=== PATIENT | male | born 1940 | race Caucasian/White ===

== ENCOUNTER 2016-03-29 07:34 | Inpatient (IN) | payer OTHER ==
--- NOTE | 2016-03-29 07:48 | EDPHY ---
H & P Time Seen by Provider: 03/29/16 07:48 HPI/ROS: CHIEF COMPLAINT: Abdominal pain HISTORY OF PRESENT ILLNESS: Started yesterday with generalized abdominal pain worsening today. Associated with nausea but no vomiting and no bowel movement in the last 24 hours. Worse with oral intake and generalized. Does not radiate. No history of fall or trauma. REVIEW OF SYSTEMS: Eye: no change in vision ENT: no sore throat Cardiac: no chest pain or syncope Pulmonary: no cough or SOB Abdomen: HPI Musculoskeletal: no back pain Skin: no rash Neuro: no headache Constitutional: no fever : no urinary symptoms A comprehensive 10 point review of systems is otherwise negative aside from elements mentioned in the history of present illness. PAST MEDICAL HISTORY: Includes cochlear implant, hernia repair x2, tonsillectomy, depression and hypertension and psoriasis. Social history: Former smoker, denies alcohol greater than 1 time per week. General Appearance: Alert and conversant, cooperative. Eyes: No scleral icterus. ENT, Mouth: Normal mucous membranes. Respiratory: Normal respiratory effort, breath sounds equal, lungs are clear to auscultation. Cardiovascular: Regular rate and rhythm. Gastrointestinal: Right lower quadrant tenderness without rebound or guarding, normal male . Neurological: Alert and oriented x3. Normally conversant. Face symmetric, normal movement and sensation in all extremities. Skin: Warm and dry, no rashes. Musculoskeletal: No peripheral edema and no joint swelling. Psychiatric: Not agitated. Emergency Department course/MDM: Fentanyl 50 mcg IV, Phenergan 12.5 mg IV normal saline 2 L, i-STAT and CT of creatinine normal. 914: Lipase reviewed, admission for pancreatitis. 947: Results discussed with the patient, admission to hospitalist service for pancreatitis. Gallbladder ultrasound ordered. Smoking Status: Former smoker Constitutional: Initial Vital Signs Temperature (C) 36.5 C 03/29/16 07:42 Heart Rate 118 H 03/29/16 07:42 Respiratory Rate 18 03/29/16 07:42 Blood Pressure 146/95 H 03/29/16 07:42 O2 Sat (%) 93 03/29/16 07:42 O2 Delivery Mode Room Air Allergies/Adverse Reactions: STRAWBERRIES Allergy (Intermediate, Uncoded 05/06/11 14:44) Hives Home Medications: Medication Instructions Recorded Cholesterol Med 12/03/10 ESCITALOPRAM OXALATE [Lexapro] 0 mg PO 12/03/10 ZOLPIDEM TARTRATE [Ambien Cr] 0 mg PO 12/03/10 Atorvastatin Calcium [Lipitor] 10 mg PO 12/17/10 Hydrocortisone 03/29/16 Lisinopril 03/29/16 Omeprazole 03/29/16 Tamsulosin HCl 03/29/16 buPROPion 03/29/16 traZODONE 50MG (*) 03/29/16 Medical Decision Making - Diagnostics EKG Interpretation: 12-lead EKG interpreted by me; official reading is in trace master. My interpretation is sinus tachycardia with first-degree AV block and LVH at rate 106. Imaging: At 9:[address] reported to me by Dr. Acevedo is pancreatitis, personally reviewed by myself. Differential Diagnosis: Differential considered including but not limited to pancreatitis, bowel obstruction, appendicitis, diverticulitis, intestinal perforation Consult/Admit Bed Type: [place] [id number] - Data Points Laboratory Results: Laboratory Results 03/29/16 08:00 03/29/16 08:00 03/29/16 03/29/16 08:00 07:55 WBC 19.76 H 10^3/uL (3.80-9.50) RBC 5.68 10^6/uL (4.40-6.38) Hgb 17.8 H g/dL (13.7-17.5) POC Hgb 18.0 H gm/dL (14.5-17.3) Hct 50.4 % (40.0-51.0) POC Hct 53 H % (42.8-50.6) MCV 88.7 fL (81.5-99.8) MCH 31.3 pg (27.9-34.1) MCHC 35.3 g/dL (32.4-36.7) RDW 13.8 % (11.5-15.2) Plt Count 226 10^3/uL (150-400) MPV 9.5 fL (8.7-11.7) Neut % (Auto) 90.0 H % (39.3-74.2) Lymph % (Auto) 3.7 L % (15.0-45.0) [place] % (Auto) 5.6 % (4.5-13.0) Eos % (Auto) 0.1 L % (0.6-7.6) Baso % (Auto) 0.2 L % (0.3-1.7) Nucleat RBC Rel Count 0.0 % (0.0-0.2) Absolute Neuts (auto) 17.82 H 10^3/uL (1.70-6.50) Absolute Lymphs (auto) 0.73 L 10^3/uL (1.00-3.00) Absolute Monos (auto) 1.10 H 10^3/uL (0.30-0.80) Absolute Eos (auto) 0.01 L 10^3/uL (0.03-0.40) Absolute Basos (auto) 0.03 10^3/uL (0.02-0.10) Absolute Nucleated RBC 0.00 10^3/uL (0-0.01) Immature Gran % 0.4 % (0.0-1.1) Immature Gran # 0.07 10^3/uL (0.00-0.10) POC Sodium 142 mEq/L (134-144) Sodium 145 H mEq/L (134-144) POC Potassium 3.7 mEq/L (3.3-5.0) Potassium 4.0 mEq/L (3.5-5.2) POC Chloride 105 mEq/L (96-108) Chloride 107 mEq/L (97-110) Carbon Dioxide 23 mEq/l (22-31) Anion Gap 15 mEq/L (8-16) POC BUN 21 mg/dL (7-23) BUN 20 mg/dL (7-23) Creatinine 0.9 mg/dL (0.7-1.3) POC Creatinine 0.9 mg/dL (0.8-1.5) Estimated GFR > 60 Glucose 147 H mg/dL (70-100) POC Glucose 151 H mg/dL (70-100) Calcium 10.7 H mg/dL (8.5-10.4) Phosphorus 2.6 mg/dL (2.5-4.5) Total Bilirubin 1.5 H mg/dL (0.1-1.4) Conjugated Bilirubin 0.4 mg/dL (0.0-0.5) Unconjugated Bilirubin 1.1 mg/dL (0.0-1.1) AST 43 IU/L (17-59) ALT 71 IU/L (21-72) Alkaline Phosphatase 139 H IU/L (38-126) Total Protein 8.0 g/dL (6.3-8.2) Albumin 4.7 g/dL (3.5-5.0) Triglycerides 91 mg/dL (40-150) Lipase 3875.0 H IU/L (23-300) Medications Given: Discontinued Medications Fentanyl (Sublimaze) 50 mcg IVP EDNOW ONE Stop: 03/29/16 07:59 Last Admin: 03/29/16 08:09 Dose: 50 mcg Sodium Chloride (Ns) 1,000 mls @ 0 mls/hr IV ONCE ONE PRN Reason: Wide Open Stop: 03/29/16 07:59 Last Admin: 03/29/16 08:10 Dose: 1,000 mls Sodium Chloride (Ns) 1,000 mls @ 0 mls/hr IV ONCE ONE PRN Reason: Wide Open Stop: 03/29/16 07:59 Last Admin: 03/29/16 08:10 Dose: 1,000 mls Promethazine HCl (Phenergan) 12.5 mg IVP EDNOW ONE Stop: 03/29/16 07:59 Last Admin: 03/29/16 08:11 Dose: 12.5 mg Point of Care Test Results: 03/29/16 07:55 POC Sodium 142 POC Potassium 3.7 POC Chloride 105 POC BUN 21 POC Creatinine 0.9 POC Glucose 151 H Departure - Departure Disposition: [facility] Inpatient Acute Clinical Impression: Pancreatitis, acute Condition: Fair
[2016-03-29] MEDS ORDERED: NS 1,000 ML IV ONE ×2 (07:58)
[2016-03-29] MEDS ORDERED: fentaNYL 100 MCG/2 ML INJ IVP ONE (07:58)
[2016-03-29] MEDS ORDERED: PROMETHAZINE HCL 25 MG/ML INJ IVP ONE (07:58)
[2016-03-29 08:09] LABS: % IMMATURE GRANULYOCYTES 0.4 % (0.0-1.1); ABSOLUTE IMMATURE GRANULOCYTES 0.07 10^3/uL (0.00-0.10); ADD DIFF? NO; ADD MORPH? NO; ADD SCAN? NO; ATYPICAL LYMPHOCYTE FLAG 0 (0-99); FRAGMENT RBC FLAG 0 (0-99); HEMATOCRIT 50.4 % (40.0-51.0); HEMOGLOBIN 17.8 g/dL (13.7-17.5); LEFT SHIFT FLG 0 (0-99); LIPEMIA HEMOLYSIS FLAG 90 (0-99); MEAN CELL HEMOGLOBIN 31.3 pg (27.9-34.1); MEAN CELL HEMOGLOBIN CONCENTR. 35.3 g/dL (32.4-36.7); MEAN CELL VOLUME 88.7 fL (81.5-99.8); MEAN PLATELET VOLUME 9.5 fL (8.7-11.7); PLATELET CLUMPS FLAG 50 (0-99); PLATELET COUNT 226 10^3/uL (150-400); RED BLOOD CELL COUNT 5.68 10^6/uL (4.40-6.38); RED CELL DISTRIBUTION WIDTH 13.8 % (11.5-15.2)
--- NOTE | 2016-03-29 08:27 | CPEKG ---
Heart Rate: 106 RR Interval: 566 P-R Interval: 228 QRSD Interval: 76 QT Interval: 312 QTC Interval: 415 P [place]: 46 QRS [place]: -11 T Wave [place]: 172 EKG Severity - ABNORMAL ECG - EKG Impression: SINUS TACHYCARDIA EKG Impression: FIRST DEGREE AV BLOCK EKG Impression: LVH WITH SECONDARY REPOLARIZATION ABNORMALITY Electronically Signed By: John Mueller 29-Mar-2016 08:53:10
[2016-03-29 08:37] LABS: ALANINE AMINOTRANSFERASE 71 IU/L (21-72); ALBUMIN 4.7 g/dL (3.5-5.0); ALKALINE PHOSPHATASE 139 IU/L (38-126); ANION GAP 15 mEq/L (8-16); ASPARTATE AMINOTRANSFERASE 43 IU/L (17-59); BILIRUBIN,TOTAL 1.5 mg/dL (0.1-1.4); BILIRUBIN-CONJUGATED 0.4 mg/dL (0.0-0.5); BILIRUBIN-UNCONJUGATED 1.1 mg/dL (0.0-1.1); CALCIUM 10.7 mg/dL (8.5-10.4); CARBON DIOXIDE 23 mEq/l (22-31); CHLORIDE 107 mEq/L (97-110); CREATININE 0.9 mg/dL (0.7-1.3); GLOMERULAR FILTRATION RATE > 60; GLUCOSE 147 mg/dL (70-100); SODIUM 145 mEq/L (134-144)
[2016-03-29] MEDS ORDERED: IOPAMIDOL (ISOVUE-300) 100 ML BTL IV ONE (08:37)
--- NOTE | 2016-03-29 09:48 | CT ---
CT Scan of the Abdomen and Pelvis (With Contrast) Clinical Indications: Abdominal pain and nausea Technique: Dilute contrast was given orally prior to scanning. 100 mL of Isovue-300 were given intr avenously by machine power injection. Multidetector helical CT imaging was performed from the diaphr agm to the symphysis pubis. Dose reduction techniques were utilized. Comparison: March 26, 2006 Findings: Abdomen: There is new peripancreatic fat edema, in the left upper quadrant, in the retroperitoneum a nd adjacent to the pancreatic head and duodenal sweep. A small focal low density in the distal common duct on image 86, series 5 could possibly represent evidence of small volume choledocholithiasis. Th ere are no obvious gallstones in the gallbladder or secondary evidence of cholecystitis. There is no intra or extrahepatic biliary dilatation. There is no pancreatic ductal dilatation, pancreatic calcif ication or pseudocyst formation. There is no evidence for bowel obstruction or ileus. A left lower pole exophytic renal cyst has enlarged from 3.3 cm to current 5.5 cm. There is no renal obstruction. The lung bases are clear without pericardial effusion. 2 small splenunculus are stable. No adenopathy and no masses are found. No aneurysm of the abdominal aorta. Pelvis: The patient has had an interval TURP. The urinary bladder is otherwise unremarkable. No free fluid in the pelvis. No masses are identified. Bowel loops are normal. Impression: Mild pancreatitis. If it is clinically important to exclude choledocholithiasis, recommen d MRCP. Results called and discussed with DEE DUTTON, at 03/29/2016 9:45
--- NOTE | 2016-03-29 10:46 | US ---
Right Upper Quadrant Abdominal Sonogram , 9:52 AM History: Pancreatitis, possible choledocholithiasis seen on CT Comparison: CT earlier at 8:50 AM Findings: The pancreas is obscured by bowel gas. There are no gallstones in the gallbladder, gallblad luciana wall thickening or pericholecystic fluid. The liver is coarsely echogenic consistent with fatty i nfiltration. It measures 15.5 cm in length. There is no obvious intra or extrahepatic biliary dilatat ion, although the common duct is poorly visualized due to adjacent bowel gas. Incidentally noted is a small 8 mm cyst in the right lobe of the liver, not commented on my CT report earlier today (image 23 series 4). The right kidney, The visualized aorta and IVC are normal. There is no ascites. Impression: 1. Fatty infiltration of the liver. 2. No gallstones in the gallbladder or obvious biliary dilatation. These findings are consistent with the CT done earlier today. 3. Consider MRCP to evaluate for small volume choledocholithiasis.
[2016-03-29] MEDS ORDERED: NS W/ 20 KCl/L 1,000 ML IV SCH (11:30)
[2016-03-29] MEDS ORDERED: ONDANSETRON 4 MG/2 ML VIAL IVP PRN (11:30)
[2016-03-29] MEDS ORDERED: ONDANSETRON DISINTEGRATING 4 MG TAB PO PRN (11:30)
--- NOTE | 2016-03-29 12:18 | GHP ---
[f rep st] HISTORY AND PHYSICAL DATE OF ADMISSION: 03/29/2016 CHIEF COMPLAINT: Abdominal pain. HISTORY OF PRESENT ILLNESS: History is limited by patient's decreased hearing. This is a 75-year-old male, with no significant medical history other than hypertension and cochlea implants, who presents with 1 day of epigastric pain. It is sharp, radiating to the back. Associated nausea but no vomiting. He has never had anything like this before. No fevers or chills. He has never had gallstone issues as well. No gallstone or gallbladder problems in the past. He denies any weight loss. No new medications. No recent fever or viral infections. REVIEW OF SYSTEMS: A 10-point review of systems is obtained, other than as stated above is negative. PAST MEDICAL HISTORY: 1. Hypertension. 2. Psoriasis. 3. Depression. 4. History of cochlea implant. 5. History of hernia repair. 6. History of tonsillectomy. SOCIAL HISTORY: Former smoker, but no alcohol. FAMILY HISTORY: Both parents are . PHYSICAL EXAM: VITAL SIGNS: Blood pressure is 154/89, heart rate was 102, oxygen saturation 94% on room air. GENERAL APPEARANCE: Patient is well- developed, in no apparent distress. HEENT: Nonicteric sclerae, dry mucous membranes. NECK: Supple, no thyromegaly. LUNGS: Good effort, clear to auscultation bilaterally. ABDOMEN: Positive bowel sounds, soft, some mild epigastric tenderness. No rebound or guarding. EXTREMITIES: No clubbing, cyanosis, or edema. SKIN: Without rash, intact. NEUROLOGIC: Alert and oriented x3, moving all 4 extremities equally. PSYCH: Normal mood and affect. LABORATORY DATA: White blood cell count is elevated at 19, hemoglobin 17, platelets are 226. Sodium is 145, potassium 4.0, BUN is 20, creatinine 0.9, glucose is 147. Total bilirubin is elevated at 1.5 with a conjugated bilirubin as low as 0.4. Alkaline phosphatase is slightly elevated at 139, lipase is 3800. CT scan with IV contrast shows mild pancreatitis, possible low density in the distal common bile duct which could be small volume choledocholithiasis, but no biliary dilatation. An abdominal ultrasound also does not show any choledocholithiasis. ASSESSMENT: 1. This is a 75-year-old male presenting with acute acute pancreatitis. The cause is uncertain at this time. I have some suspicion for passed gallstone with a slightly elevated alkaline phosphatase. There might have been some debris in the gallbladder per CAT scan. At this point I am going to hold off on MRCP. There are no pancreatic masses and no biliary dilatation. I am not sure ERCP would be warranted at this time. We will check a triglyceride level. No new medications. This could be idiopathic. We will also keep him n.p.o., give IV fluids and monitor progress tomorrow. 2. Hypertension. We will continue his medications, probably hold lisinopril as that can cause pancreatitis. /[id number]/MODL MTDD
[2016-03-29] MEDS: oxyCODONE IR 5 MG TAB PO PRN ×2 (16:28→22:55)
[2016-03-30 05:26] LABS: % IMMATURE GRANULYOCYTES 0.7 % (0.0-1.1); ABSOLUTE IMMATURE GRANULOCYTES 0.12 10^3/uL (0.00-0.10); ADD DIFF? NO; ADD MORPH? NO; ADD SCAN? NO; ATYPICAL LYMPHOCYTE FLAG 0 (0-99); FRAGMENT RBC FLAG 0 (0-99); HEMATOCRIT 49.7 % (40.0-51.0); HEMOGLOBIN 16.9 g/dL (13.7-17.5); LEFT SHIFT FLG 0 (0-99); LIPEMIA HEMOLYSIS FLAG 90 (0-99); MEAN CELL VOLUME 91.2 fL (81.5-99.8); MEAN PLATELET VOLUME 9.8 fL (8.7-11.7); PLATELET CLUMPS FLAG 0 (0-99); PLATELET COUNT 184 10^3/uL (150-400); RED BLOOD CELL COUNT 5.45 10^6/uL (4.40-6.38); RED CELL DISTRIBUTION WIDTH 14.2 % (11.5-15.2)
[2016-03-30 05:52] LABS: ALANINE AMINOTRANSFERASE 56 IU/L (21-72); ALBUMIN 4.1 g/dL (3.5-5.0); ALKALINE PHOSPHATASE 117 IU/L (38-126); ANION GAP 14 mEq/L (8-16); ASPARTATE AMINOTRANSFERASE 41 IU/L (17-59); BILIRUBIN,TOTAL 1.7 mg/dL (0.1-1.4); CALCIUM 10.2 mg/dL (8.5-10.4); CARBON DIOXIDE 23 mEq/l (22-31); CHLORIDE 110 mEq/L (97-110); CREATININE 0.9 mg/dL (0.7-1.3); GLOMERULAR FILTRATION RATE > 60; GLUCOSE 84 mg/dL (70-100); POTASSIUM 3.9 mEq/L (3.5-5.2); SODIUM 147 mEq/L (134-144); TOTAL PROTEIN 7.2 g/dL (6.3-8.2)
[2016-03-30] MEDS: oxyCODONE IR 5 MG TAB PO PRN ×2 (09:30→18:13)
[2016-03-30] MEDS: ENOXAPARIN 40 MG/0.4 ML SYR SC SCH (09:31)
[2016-03-30] MEDS ORDERED: GABAPENTIN 300 MG CAP PO PRN (10:14)
--- NOTE | 2016-03-30 10:21 | HOSPPROG ---
Hospitalist Progress Note Assessment/Plan: * acute pancreatitis * unclear cause * possibility of small volume colo local lithiasis but there are no gallstones a currently in gallbladder and LFTs were not consistent with obstruction * I do not think there is enough evidence to recommend cholecystectomy at this time and I think MRCP would be low yield * start clears today and advance tomorrow if tolerated and possibly discharging * hypertension * depression Subjective: abdominal pain is improving. No nausea Objective: Vital Signs Temp Pulse Resp BP Pulse Ox 37.2 C 109 H 16 149/98 H 90 L 03/30/16 08:00 03/30/16 08:00 03/30/16 08:00 03/30/16 08:00 03/30/16 08:00 Laboratory Results 03/30/16 04:43 03/30/16 04:43 03/29/16 03/30/16 03/31/16 05:59 05:59 05:59 Intake Total 3325 Output Total 1 Balance 3324 - Physical Exam Constitutional: no apparent distress, appears nourished, not in pain Eyes: anicteric sclera, EOMI Ears, Nose, Mouth, Throat: moist mucous membranes Respiratory: no respiratory distress Gastrointestinal: normoactive bowel sounds, soft, non-tender abdomen, no palpable masses Neurologic: AAOx3 Psychiatric: interacting appropriately, not anxious, not encephalopathic, thought process linear ICD10 Worksheet Patient Problems: Problems Problem Status Diagnosed Pancreatitis, acute Acute
[2016-03-30] MEDS: D5W 1/2 NS W/ 20 KCl/L 1,000 ML IV SCH (12:22)
[2016-03-30] MEDS: ACETAMINOPHEN 325 MG TAB PO PRN (14:47)
[2016-03-30] MEDS: traZODone 50 MG TAB PO SCH (20:29)
[2016-03-31] MEDS: D5W 1/2 NS W/ 20 KCl/L 1,000 ML IV SCH ×2 (00:43→12:49)
[2016-03-31] MEDS: ACETAMINOPHEN 325 MG TAB PO PRN ×4 (00:48→23:06)
[2016-03-31 05:57] LABS: % IMMATURE GRANULYOCYTES 0.5 % (0.0-1.1); ABSOLUTE IMMATURE GRANULOCYTES 0.07 10^3/uL (0.00-0.10); ADD DIFF? NO; ADD MORPH? NO; ADD SCAN? NO; ATYPICAL LYMPHOCYTE FLAG 0 (0-99); FRAGMENT RBC FLAG 0 (0-99); HEMATOCRIT 46.6 % (40.0-51.0); HEMOGLOBIN 16.1 g/dL (13.7-17.5); LEFT SHIFT FLG 0 (0-99); LIPEMIA HEMOLYSIS FLAG 90 (0-99); MEAN CELL HEMOGLOBIN 31.3 pg (27.9-34.1); MEAN CELL HEMOGLOBIN CONCENTR. 34.5 g/dL (32.4-36.7); MEAN CELL VOLUME 90.5 fL (81.5-99.8); MEAN PLATELET VOLUME 9.9 fL (8.7-11.7); PLATELET CLUMPS FLAG 10 (0-99); PLATELET COUNT 166 10^3/uL (150-400); RED BLOOD CELL COUNT 5.15 10^6/uL (4.40-6.38); RED CELL DISTRIBUTION WIDTH 13.9 % (11.5-15.2)
[2016-03-31 06:14] LABS: ALANINE AMINOTRANSFERASE 50 IU/L (21-72); ALBUMIN 3.7 g/dL (3.5-5.0); ALKALINE PHOSPHATASE 112 IU/L (38-126); ANION GAP 12 mEq/L (8-16); ASPARTATE AMINOTRANSFERASE 35 IU/L (17-59); BILIRUBIN,TOTAL 1.8 mg/dL (0.1-1.4); CALCIUM 9.8 mg/dL (8.5-10.4); CARBON DIOXIDE 26 mEq/l (22-31); CHLORIDE 106 mEq/L (97-110); CREATININE 0.8 mg/dL (0.7-1.3); GLOMERULAR FILTRATION RATE > 60; GLUCOSE 94 mg/dL (70-100); POTASSIUM 3.7 mEq/L (3.5-5.2); SODIUM 144 mEq/L (134-144); TOTAL PROTEIN 6.6 g/dL (6.3-8.2)
[2016-03-31] MEDS: buPROPion XL 150 MG TAB PO SCH (09:08)
[2016-03-31] MEDS: amLODIPine BESYLATE 5 MG TAB PO SCH (09:08)
[2016-03-31] MEDS: TAMSULOSIN HCL 0.4 MG CAP PO SCH (09:08)
[2016-03-31] MEDS: ENOXAPARIN 40 MG/0.4 ML SYR SC SCH (09:09)
--- NOTE | 2016-03-31 14:17 | HOSPPROG ---
Hospitalist Progress Note Assessment/Plan: 75 yo M with pmh of htn presenting with acute pancreatitis # acute pancreatitis: without gallstones or other clear issues noted on imaging including abd ct or abd US. LFTs relatively normal other than mildly increased bilirubin. No meds to implicate, TG normal, no drinking history. Given that this is the first episode and that he is rapidly improving, will hold off on MRCP. Advancing diet, repeat lipase in am. # elevated bilirubin: in association with above but otherwise lfts wnl, possible mild underlying [place] # renal cyst: has enlarged from prior imaging, repeat imaging in next year # htn: bp well controlled currently, continue current regimen # dispo: IP status, not ready for dc given that he is not tolerating diet yet Patient new to my care. Old records reviewed and summarized as above. Care plan reviewed with patient present at bedside. Subjective: no significant overnight events, patient currently feeling well, denies abdominal pain, tried solid food and notes pain not worse but "not hungry " Objective: Vital Signs Temp Pulse Resp BP Pulse Ox 36.8 C 84 12 141/83 H 92 03/31/16 07:46 03/31/16 07:46 03/31/16 07:46 03/31/16 07:46 03/31/16 07:46 Laboratory Results 03/31/16 04:44 03/31/16 04:44 03/30/16 03/31/16 04/01/16 05:59 05:59 05:59 Intake Total 3325 825 Output Total 1 300 Balance 3324 825 -300 awake alert anicteric extremely hard of hearing op clear rrr no mrg cta b soft dec bs non tender, no rebound or guarding no cce warm dry well perfused oriented appropriate - Time Spent With Patient Time Spent with Patient: greater than 35 minutes Time Spent with Patient: Greater than 35 minutes spent on this patients care, greater than 50% of time spent counseling, educating, and coordinating care regarding the above mentioned plan. ICD10 Worksheet Patient Problems: Problems Problem Status Diagnosed Pancreatitis, acute Acute
[2016-03-31] MEDS: traZODone 50 MG TAB PO SCH (20:34)
[2016-03-31 23:09] VITALS: RESP 18
[2016-04-01] MEDS: oxyCODONE IR 5 MG TAB PO PRN (04:42)
[2016-04-01 07:42] VITALS: BP 129/72; PULSE 84; TEMP 98.1; O2SAT 92
[2016-04-01] MEDS: buPROPion XL 150 MG TAB PO SCH (09:33)
[2016-04-01] MEDS: TAMSULOSIN HCL 0.4 MG CAP PO SCH (09:33)
[2016-04-01] MEDS: ENOXAPARIN 40 MG/0.4 ML SYR SC SCH (09:34)
[2016-04-01] MEDS: amLODIPine BESYLATE 5 MG TAB PO SCH (09:34)
--- NOTE | 2016-04-01 16:50 | PDDCSUM ---
Discharge Summary Discharge Summary: Dates of service 03/29-04/01/16 Discharge dx: # acute pancreatitis # elevated bilirubin # renal cyst # htn Consultations: None Procedures performed: abd US, abd ct Hospital course by problem: # acute pancreatitis: without gallstones or other clear issues noted on imaging including abd ct or abd US. LFTs relatively normal other than mildly increased bilirubin. No meds to implicate, TG normal, no drinking history. Given that this is the first episode and that he is rapidly improving, will hold off on MRCP. tolerating food, no residual pain. If recurs will need MRCP, will have patient f/u with GI . # elevated bilirubin: in association with above but otherwise lfts wnl, possible mild underlying [place] # renal cyst: has enlarged from prior imaging, repeat imaging in next year # htn: bp well controlled currently, continue current regimen dc home f/u with PCP and GI of the [facility] Meds: see EHR > 35 min spent in dc of patient more than half in coordination of care and counseling patient and his
== END 2016-04-01 11:56 | disposition home or self-care (01) | DRG 440 ==
LOC: F3E 10:25
PROVIDERS: ADMIT Internal Medicine; ATTEND Internal Medicine
DX: K85.90 Acute pancreatitis without necrosis or infection, unspecified (principal); I10 Essential (primary) hypertension; N28.1 Cyst of kidney, acquired
CPT/HCPCS: 82947-QW; 96374; J1650; J2405; J2550; J3010; Q9967

== ENCOUNTER 2016-04-25 09:23 | Day surgery (SDC) | payer OTHER ==
[2016-04-25] MEDS ORDERED: LR 1,000 ML IV ONE (09:53)
[2016-04-25] MEDS ORDERED: GLUCAGON,HUMAN RECOMBINANT 1 MG VIAL ONE (10:26)
[2016-04-25] MEDS ORDERED: IOTHALAMATE MEG (CONRAY) 50 ML VIAL IV ONE (10:27)
[2016-04-25] MEDS ORDERED: fentaNYL 100 MCG/2 ML INJ ONE (10:30)
[2016-04-25] MEDS ORDERED: LIDOCAINE 2% 5 ML SDV ONE (10:30)
[2016-04-25] MEDS ORDERED: PROPOFOL/EMULSION 500 MG/50 ML BOTTLE IV ONE (10:31)
--- NOTE | 2016-04-25 12:11 | GPN ---
[f rep st] PROCEDURE NOTE DATE OF PROCEDURE: 04/25/2016 PROCEDURES: Endoscopic ultrasound. Esophagogastroduodenoscopy with biopsy. INDICATION: The patient is a 75-year-old male who presents for evaluation of an elevated alkaline phosphatase, abnormal imaging, as well as a recent attack of pancreatitis. He did have a CT scan, which showed a 3 mm filling defect in the distal common bile duct. He presents for further evaluation. CONSENT: Risks, benefits, and alternatives of the procedure were discussed in great detail with the patient. Risk of infection, bleeding, perforation, sedation, and pancreatitis were discussed. All questions answered and informed consent obtained. MEDICATIONS: Propofol. Please see Anesthesiology record for details. ESTIMATED BLOOD LOSS: Insignificant. ESOPHAGOGASTROSCOPY EXAMINATION: The Olympus upper endoscope was introduced into the mouth and advanced to the esophagus. In the mid esophagus, there was a ringed appearance with linear furrows. Biopsies were taken. In the distal esophagus, a small 3mm ulcer was noted with LA grade A esophagitis. The stomach was entered and closely examined, including retroflexed views of the angularis, cardia and fundus. The patient was noted to have a moderate sized hiatal hernia. The mucosa in the antrum and body was erythematous in a patchy distribution. Biopsies were taken. The duodenal bulb and second portion of the duodenum were normal in appearance. ENDOSCOPIC ULTRASOUND EXAMINATION: The Olympus linear echoendoscope was inserted into the mouth and advanced to the second portion of the duodenum. The pancreas was carefully examined from the uncinate process to the tail where the spleen was seen. The patient was noted to have a mildly dilated pancreatic duct measuring 3 mm in the body. The pancreatic duct wall was hyperechoic. No significant dilated side branches noted. Hyperechoic foci were noted throughout the pancreas. The common bile duct was seen and was without stone stricture or stenosis. No filling defect or abnormality noted. The gallbladder was seen and was without debris or other defects. The liver was normal in appearance. No suspicious peripancreatic, perigastric or celiac nodes were appreciated. IMPRESSION: 1. Normal common bile duct. 2. Ulcerative esophagitis. 3. Hiatal hernia. 4. Gastritis, status post biopsy. RECOMMENDATIONS: 1. Follow up biopsy results. 2. PPI therapy. /[id number]/MODL MTDD
== END 2016-04-25 12:35 | disposition home or self-care (01) ==
LOC: FSGY 09:23
PROVIDERS: ATTEND Internal Medicine Gastroenterology
PROC: 0DB28ZX Excision of Middle Esophagus, Via Natural or Artificial Opening Endoscopic, Diagnostic (ICD-10-PCS; principal; 2016-04-25 11:15)
PROC: 0DB68ZX Excision of Stomach, Via Natural or Artificial Opening Endoscopic, Diagnostic (ICD-10-PCS; principal; 2016-04-25 11:15)
PROC: 0FJD8ZZ Inspection of Pancreatic Duct, Via Natural or Artificial Opening Endoscopic (ICD-10-PCS; principal; 2016-04-25 11:15)
DX: K22.10 Ulcer of esophagus without bleeding (principal); K44.9 Diaphragmatic hernia without obstruction or gangrene; K29.70 Gastritis, unspecified, without bleeding; K85.90 Acute pancreatitis without necrosis or infection, unspecified; I10 Essential (primary) hypertension; F32.9 Major depressive disorder, single episode, unspecified; E21.3 Hyperparathyroidism, unspecified; M25.551 Pain in right hip; M75.101 Unspecified rotator cuff tear or rupture of right shoulder, not specified as traumatic; G47.33 Obstructive sleep apnea (adult) (pediatric)
CPT/HCPCS: J1610; J2704; J3010; Q9961

== ENCOUNTER → 2016-07-25 | Outpatient (CLI) | payer OTHER | LOC: FIMAGING 10:38 | PROVIDERS: ATTEND Surgery | DX: E21.0 Primary hyperparathyroidism (principal); E04.2 Nontoxic multinodular goiter | CPT/HCPCS: 78070; A9500 ==

== ENCOUNTER → 2016-08-26 | Outpatient (CLI) | payer OTHER | LOC: FIMAGING 07:14 | PROVIDERS: ATTEND Surgery | DX: E21.0 Primary hyperparathyroidism (principal) | CPT/HCPCS: 78808; A9500 ==

== ENCOUNTER 2016-08-27 16:54 | Inpatient (IN) | payer OTHER ==
[2016-08-27] MEDS ORDERED: NS 1,000 ML IV ONE (17:42)
--- NOTE | 2016-08-27 18:19 | GHP ---
[f rep st] PREOP HISTORY AND PHYSICAL DATE OF ADMISSION: 08/27/2016 REASON FOR ADMISSION: Abdominal pain. HISTORY OF PRESENT ILLNESS: 75-year-old male with a significant recent history for acute pancreatitis. He underwent an extensive initial workup ultimately resulting in hypercalcemia for which he underwent a parathyroidectomy yesterday. The patient presents to the office today with complaints of severe abdominal pain starting last evening with multiple episodes of nausea and no bowel movements times 3-4 days. KUB shows no evidence of obstruction. The patient reports his pain to be 9/10. He reports his pain to be reminiscent of his complaints with his pancreatitis. He is being admitted at this time for pain control and further workup. The patient denies fevers or chills. He denies voiding complaints. He does report mild lower back pain. PAST MEDICAL HISTORY: Hypertension. Nephrolithiasis. Obstructive sleep apnea. Hypertension. PAST SURGICAL HISTORY: Laparoscopic inguinal hernia repair, tonsillectomy, cystoscopy with stone extraction, ACL repair, cochlear implant. MEDICATIONS: 1. Gabapentin. 2. Bupropion. 3. Betamethasone. 4. Omeprazole. ALLERGIES: Strawberries, hives. SOCIAL HISTORY: No alcohol, no tobacco. He is to [place]. PHYSICAL EXAMINATION: GENERAL: The patient is currently afebrile. Appears mildly uncomfortable. HEENT: Anicteric. NECK: No cervical lymphadenopathy. Nicely healing neck incision. HEART: Regular. LUNGS: Clear. ABDOMEN: Distended. Mild diffuse tenderness without rebound or guarding. EXTREMITIES: Unremarkable. NEUROLOGIC: Unremarkable. KUB: Nonspecific bowel gas pattern. IMPRESSION: Abdominal pain, suspect probably recurrent pancreatitis. PLAN: 1. Patient is being admitted for pain control, fluid resuscitation and repeat laboratory assessment. Further recommendations to follow to this end. 2. Hyperparathyroidism, status post subtotal parathyroidectomy. Will repeat postoperative calcium and PTH on admission as well. /[id number]/MODL MTDD
[2016-08-27] MEDS: HYDROmorphONE/DILAUDID 2 MG/ML INJ IVP PRN ×3 (18:22→22:22)
[2016-08-27] MEDS: ONDANSETRON 4 MG/2 ML VIAL IVP PRN ×2 (18:28→22:22)
[2016-08-27 19:15] LABS: HEMATOCRIT 54.7 % (40.0-51.0); HEMOGLOBIN 18.5 g/dL (13.7-17.5); MEAN CELL HEMOGLOBIN 30.7 pg (27.9-34.1); MEAN CELL HEMOGLOBIN CONCENTR. 33.8 g/dL (32.4-36.7); MEAN CELL VOLUME 90.9 fL (81.5-99.8); RED BLOOD CELL COUNT 6.02 10^6/uL (4.40-6.38); RED CELL DISTRIBUTION WIDTH 13.8 % (11.5-15.2)
[2016-08-27 20:13] LABS: COLOR YELLOW; LEUKOCYTE ESTERASE,URINE NEGATIVE (NEGATIVE); NITRITE,URINE NEGATIVE (NEGATIVE)
[2016-08-27] MEDS: D5W 1/2 NS W/ 20 KCl/L 1,000 ML IV SCH (20:18)
[2016-08-27 20:29] LABS: MUCUS TRACE /lpf (NONE-1+)
[2016-08-27] MEDS ORDERED: hydrALAZINE 20 MG/ML VIAL IVP ONE (21:30)
[2016-08-27 21:46] LABS: ALANINE AMINOTRANSFERASE 55 IU/L (21-72); ALKALINE PHOSPHATASE 143 IU/L (38-126); ANION GAP 20 mEq/L (8-16); ASPARTATE AMINOTRANSFERASE 48 IU/L (17-59); BILIRUBIN,TOTAL 1.6 mg/dL (0.1-1.4); CALCIUM 9.7 mg/dL (8.5-10.4); CARBON DIOXIDE 14 mEq/l (22-31); CHLORIDE 106 mEq/L (97-110); CREATININE 0.9 mg/dL (0.7-1.3); GLOMERULAR FILTRATION RATE > 60; GLUCOSE 133 mg/dL (70-100); SODIUM 140 mEq/L (134-144); TOTAL PROTEIN 7.4 g/dL (6.3-8.2)
[2016-08-27] MEDS ORDERED: hydrALAZINE 20 MG/ML VIAL IVP PRN (23:56)
[2016-08-27 23:57] LABS: ALBUMIN 4.1 g/dL (3.5-5.0)
[2016-08-28] MEDS: HYDROmorphONE/DILAUDID 2 MG/ML INJ IVP PRN ×7 (02:27→23:27)
[2016-08-28] MEDS: ONDANSETRON 4 MG/2 ML VIAL IVP PRN (02:27)
[2016-08-28] MEDS: D5W 1/2 NS W/ 20 KCl/L 1,000 ML IV SCH ×2 (04:53→16:39)
[2016-08-28 05:27] LABS: HEMATOCRIT 50.4 % (40.0-51.0); HEMOGLOBIN 17.3 g/dL (13.7-17.5); MEAN CELL HEMOGLOBIN CONCENTR. 34.3 g/dL (32.4-36.7); MEAN CELL VOLUME 90.3 fL (81.5-99.8); RED BLOOD CELL COUNT 5.58 10^6/uL (4.40-6.38)
[2016-08-28 05:49] LABS: ALANINE AMINOTRANSFERASE 49 IU/L (21-72); ALBUMIN 3.8 g/dL (3.5-5.0); ALKALINE PHOSPHATASE 125 IU/L (38-126); ANION GAP 13 mEq/L (8-16); ASPARTATE AMINOTRANSFERASE 42 IU/L (17-59); BILIRUBIN,TOTAL 1.5 mg/dL (0.1-1.4); CALCIUM 8.6 mg/dL (8.5-10.4); CARBON DIOXIDE 21 mEq/l (22-31); CHLORIDE 106 mEq/L (97-110); CREATININE 0.9 mg/dL (0.7-1.3); GLOMERULAR FILTRATION RATE > 60; GLUCOSE 140 mg/dL (70-100); POTASSIUM 3.7 mEq/L (3.5-5.2); SODIUM 140 mEq/L (134-144); TOTAL PROTEIN 6.5 g/dL (6.3-8.2)
[2016-08-28] MEDS ORDERED: GABAPENTIN 300 MG CAP PO PRN (07:54)
--- NOTE | 2016-08-28 08:03 | SOAPPROG ---
SOAP Progress Note Assessment/Plan: Assessment:pain slightly better. no further nausea. no neck complaints. Afebrile bp 160/97. P 110. appears more comfortable. anicteric. abd dist, soft, less tender. no ecchymosis. ca 8.6. lipase 3600. TB 1.5. WBC 22. acute pancreatitis - query hyperpara/hypercalcemia - resolved s/p subtotal parathyroidectomy on thursday. cont supportive care for now. sips of clear ok. HTN - restart home meds. Plan: 08/28/16 08:02 08/28/16 08:03 Objective: Vital Signs Temp Pulse Resp BP Pulse Ox 36.8 C 112 H 15 160/97 H 92 08/28/16 07:23 08/28/16 07:23 08/28/16 07:23 08/28/16 07:23 08/28/16 07:23 Laboratory Results 08/28/16 04:54 08/28/16 04:54 08/27/16 08/28/16 08/29/16 05:59 05:59 05:59 Intake Total 965 Output Total 500 Balance 465 ICD10 Worksheet Patient Problems: Problems Problem Status Onset Pancreatitis, acute Acute
[2016-08-28 08:39] LABS: BILIRUBIN,TOTAL 1.5 mg/dL (0.1-1.4); BILIRUBIN-CONJUGATED 0.7 mg/dL (0.0-0.5); BILIRUBIN-UNCONJUGATED 0.8 mg/dL (0.0-1.1)
[2016-08-28] MEDS ORDERED: amLODIPine BESYLATE 5 MG TAB PO SCH (09:00)
[2016-08-28] MEDS: TAMSULOSIN HCL 0.4 MG CAP PO SCH (09:28)
[2016-08-28] MEDS: buPROPion XL 150 MG TAB PO SCH (09:29)
--- NOTE | 2016-08-28 18:15 | SOAPPROG ---
SOAP Progress Note Assessment/Plan: Assessment: Patient seen this afternoon. Currently resting in bed. Tolerating sips of clears today. Just recently had more pain meds for abdominal pain. He notes pain is less severe today. No nausea. No neck complaints. BP improving. Will see again in am. Plan: 08/28/16 18:14 Objective: Vital Signs Temp Pulse Resp BP Pulse Ox 36.9 C 115 H 16 131/99 H 92 08/28/16 15:41 08/28/16 15:41 08/28/16 15:41 08/28/16 13:49 08/28/16 15:41 Laboratory Results 08/28/16 04:54 08/28/16 04:54 08/27/16 08/28/16 08/29/16 05:59 05:59 05:59 Intake Total 965 Output Total 500 Balance 465 ICD10 Worksheet Patient Problems: Problems Problem Status Onset Pancreatitis, acute Acute
[2016-08-28] MEDS ORDERED: amLODIPine BESYLATE 5 MG TAB PO ONE (19:30)
[2016-08-28] MEDS: traZODone 50 MG TAB PO SCH (21:33)
[2016-08-29] MEDS: HYDROmorphONE/DILAUDID 2 MG/ML INJ IVP PRN ×4 (01:36→11:34)
[2016-08-29] MEDS: D5W 1/2 NS W/ 20 KCl/L 1,000 ML IV SCH ×3 (01:36→21:17)
[2016-08-29 07:40] LABS: HEMATOCRIT 48.9 % (40.0-51.0); HEMOGLOBIN 16.4 g/dL (13.7-17.5); MEAN CELL HEMOGLOBIN 30.5 pg (27.9-34.1); MEAN CELL HEMOGLOBIN CONCENTR. 33.5 g/dL (32.4-36.7); MEAN CELL VOLUME 91.1 fL (81.5-99.8); RED BLOOD CELL COUNT 5.37 10^6/uL (4.40-6.38); RED CELL DISTRIBUTION WIDTH 14.1 % (11.5-15.2)
[2016-08-29] MEDS: buPROPion XL 150 MG TAB PO SCH (07:52)
[2016-08-29] MEDS: TAMSULOSIN HCL 0.4 MG CAP PO SCH (07:52)
[2016-08-29 08:12] LABS: ALANINE AMINOTRANSFERASE 43 IU/L (21-72); ALBUMIN 3.8 g/dL (3.5-5.0); ALKALINE PHOSPHATASE 121 IU/L (38-126); ANION GAP 14 mEq/L (8-16); ASPARTATE AMINOTRANSFERASE 35 IU/L (17-59); BILIRUBIN,TOTAL 2.7 mg/dL (0.1-1.4); CALCIUM 8.3 mg/dL (8.5-10.4); CARBON DIOXIDE 23 mEq/l (22-31); CHLORIDE 102 mEq/L (97-110); CREATININE 0.8 mg/dL (0.7-1.3); GLOMERULAR FILTRATION RATE > 60; GLUCOSE 125 mg/dL (70-100); POTASSIUM 4.1 mEq/L (3.5-5.2); SODIUM 139 mEq/L (134-144); TOTAL PROTEIN 6.5 g/dL (6.3-8.2)
[2016-08-29 08:29] LABS: BILIRUBIN-CONJUGATED 1.4 mg/dL (0.0-0.5); BILIRUBIN-UNCONJUGATED 1.3 mg/dL (0.0-1.1)
[2016-08-29] MEDS: oxyCODONE IR 5 MG TAB PO PRN ×2 (11:06→16:31)
--- NOTE | 2016-08-29 11:22 | SOAPPROG ---
SOAP Progress Note Assessment/Plan: Assessment: Patient resting in bed. Complains of increased lower abdominal and lower back pain today. Tolerating sips of clears. No nausea. afeb, BP 140/90, HR 110s, 92% 2LNC, A&O x 3, Neck incision intact, minimal appropriate ecchymosis noted, abd- soft, tender just above umbilicus WBC 18.6(22), H/H 16.4/48.9 (17.3/50.4), Plt 144 (178), Lipase 643 (3545), lytes normal, glucose 125, calcium 8.3, TB 2.7 ( 1.5), conj bili 1.4, uncong 1.3, LFTs normal. Plan: Acute pancreatitis- continue clears for now. Continue pain meds prn. Dr. De León plans to review case again with Dr. Almaraz. Patient with prior ERCP for retained stones. Will follow closely. Plan: 08/28/16 18:14 08/29/16 11:21 08/29/16 11:24 Objective: Vital Signs Temp Pulse Resp BP Pulse Ox 36.7 C 112 H 14 140/90 H 92 08/29/16 07:33 08/29/16 07:33 08/29/16 07:33 08/29/16 07:52 08/29/16 07:33 Laboratory Results 08/29/16 07:28 08/29/16 07:28 08/28/16 08/29/16 08/30/16 05:59 05:59 05:59 Intake Total 965 1800 Output Total 500 1100 275 Balance 465 700 -275 ICD10 Worksheet Patient Problems: Problems Problem Status Onset Pancreatitis, acute Acute
[2016-08-29] MEDS ORDERED: HYDROmorphONE/DILAUDID 1 MG/ML SYR IVP PRN (12:18)
[2016-08-29] MEDS ORDERED: NALOXONE HCL 0.4 MG/ML INJ IVP PRN (17:17)
[2016-08-29] MEDS: HYDROmorphONE/DILAUDID 6 MG/30 ML PCA IV PRN ×2 (17:52→22:55)
[2016-08-29] MEDS ORDERED: amLODIPine BESYLATE 5 MG TAB PO ONE (19:04)
[2016-08-29] MEDS: HEPARIN 5,000 UNIT/0.5 ML SYR SC SCH (21:17)
[2016-08-29] MEDS: traZODone 50 MG TAB PO SCH (21:17)
[2016-08-30] MEDS: D5W 1/2 NS W/ 20 KCl/L 1,000 ML IV SCH ×2 (05:04→20:15)
[2016-08-30] MEDS: HEPARIN 5,000 UNIT/0.5 ML SYR SC SCH (05:05)
[2016-08-30 05:25] LABS: HEMATOCRIT 43.2 % (40.0-51.0); MEAN CELL HEMOGLOBIN 31.3 pg (27.9-34.1); MEAN CELL HEMOGLOBIN CONCENTR. 34.7 g/dL (32.4-36.7); MEAN CELL VOLUME 90.2 fL (81.5-99.8); RED BLOOD CELL COUNT 4.79 10^6/uL (4.40-6.38); RED CELL DISTRIBUTION WIDTH 13.8 % (11.5-15.2)
[2016-08-30 05:44] LABS: ALANINE AMINOTRANSFERASE 36 IU/L (21-72); ALKALINE PHOSPHATASE 119 IU/L (38-126); ASPARTATE AMINOTRANSFERASE 27 IU/L (17-59); BILIRUBIN,TOTAL 3.3 mg/dL (0.1-1.4); CALCIUM 8.3 mg/dL (8.5-10.4); CARBON DIOXIDE 23 mEq/l (22-31); CHLORIDE 104 mEq/L (97-110); CREATININE 0.8 mg/dL (0.7-1.3); GLOMERULAR FILTRATION RATE > 60; GLUCOSE 126 mg/dL (70-100); POTASSIUM 3.8 mEq/L (3.5-5.2); TOTAL PROTEIN 5.7 g/dL (6.3-8.2)
[2016-08-30 05:57] LABS: ANION GAP 11 mEq/L (8-16); SODIUM 138 mEq/L (134-144)
[2016-08-30 06:04] LABS: BILIRUBIN-UNCONJUGATED 1.3 mg/dL (0.0-1.1)
[2016-08-30] MEDS: buPROPion XL 150 MG TAB PO SCH (09:57)
[2016-08-30] MEDS: TAMSULOSIN HCL 0.4 MG CAP PO SCH (09:57)
[2016-08-30] MEDS: oxyCODONE IR 5 MG TAB PO PRN ×4 (10:06→22:58)
--- NOTE | 2016-08-30 10:12 | SOAPPROG ---
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 still with pain - 8/10 - more in back and less abdomen - hx chronic LBP - this is different. no cp or sob. afebrile. 150/90. P 100's. much more comfortable. abd soft, less tender. mild lower back tenderness. LFT TB increased 3.6. acute pancreatitis - will need future ERCP - if TB continues to increase, may need to occur prior to discharge. if improves on its own, favor outpatient procedure once feeling better. will cont clears and IVF. add toradol. cont OXY IR - minimize dilaudid if able. HTN better with increased amlodipine. pain slightly better. no further nausea. no neck complaints. Afebrile bp 160/ 97. P 110. appears more comfortable. anicteric. abd dist, soft, less tender. no ecchymosis. ca 8.6. lipase 3600. TB 1.5. WBC 22. acute pancreatitis - query hyperpara/hypercalcemia - resolved s/p subtotal parathyroidectomy on thursday. cont supportive care for now. sips of clear ok. HTN - restart home meds. Plan: 08/28/16 08:02 08/28/16 08:03 08/30/16 10:10 Objective: Vital Signs Temp Pulse Resp BP Pulse Ox 36.9 C 113 H 20 152/90 H 92 08/30/16 07:24 08/30/16 07:24 08/30/16 07:24 08/30/16 07:24 08/30/16 07:24 Laboratory Results 08/30/16 05:16 08/30/16 05:16 08/29/16 08/30/16 08/31/16 05:59 05:59 05:59 Intake Total 1800 2200 Output Total 1100 275 Balance 700 1925 ICD10 Worksheet Patient Problems: Problems Problem Status Onset Pancreatitis, acute Acute
[2016-08-30] MEDS ORDERED: BISACODYL 10 MG SUPP PR PRN (10:14)
[2016-08-30] MEDS ORDERED: MAGNESIUM HYDROXIDE 30 ML UDCUP PO PRN (10:14)
[2016-08-30] MEDS: ENOXAPARIN 40 MG/0.4 ML SYR SC SCH (10:50)
[2016-08-30] MEDS: KETOROLAC 15 MG/1 ML SDV IVP SCH ×3 (12:20→22:59)
--- NOTE | 2016-08-30 12:42 | SOAPPROG ---
SOAP Progress Note Assessment/Plan: Assessment: Plan: 08/30/16 12:42 GI note See dictated note for details. Will check US of RUQ. Objective: Vital Signs Temp Pulse Resp BP Pulse Ox 36.6 C 115 H 20 157/95 H 95 08/30/16 11:23 08/30/16 11:23 08/30/16 11:23 08/30/16 11:23 08/30/16 11:23 Laboratory Results 08/30/16 05:16 08/30/16 05:16 08/29/16 08/30/16 08/31/16 05:59 05:59 05:59 Intake Total 1800 2200 Output Total 1100 275 Balance 700 1925 ICD10 Worksheet Patient Problems: Problems Problem Status Onset Pancreatitis, acute Acute
--- NOTE | 2016-08-30 14:02 | GCON ---
[f rep st] CONSULTATION DATE OF CONSULTATION: 08/30/2016 REFERRING PHYSICIAN: Mich De León MD REASON FOR CONSULTATION: Acute pancreatitis/increasing liver function tests. CHIEF COMPLAINT: Abdominal pain. HISTORY OF PRESENT ILLNESS: Mr. Ramires is a 75-year-old male with a history of hypertension, obstructive sleep apnea, hyperparathyroidism status post parathyroidectomy who presents to [facility] with complaints of abdominal pain. The patient did have a prior episode of pancreatitis in March of this year. At that time, he was experiencing a sharp constant pain in mid epigastric area and was admitted to the hospital on 03/29/2016. He had blood work consistent with acute pancreatitis. A CT scan was performed which showed the possibility of a 3 mm stone in the distal bile duct. He underwent an endoscopic ultrasound on 04/25/2016 as an outpatient with no stone found. He recently had a workup with surgery and recently underwent a parathyroidectomy 1 day prior to admission. He states he went home and was doing well. He suddenly started to experience a sharp upper abdominal pain. This pain did radiate to the back occasionally. He also had complaints of nausea. His pain became more progressive. He believes his symptoms are exacerbated by any oral intake with no alleviating factors. Due to his complaints, he presented to the hospital and found to have significantly elevated pancreatic enzymes with a lipase of 4501, consistent with acute pancreatitis. His alkaline phosphatase was initially elevated to 143 on 08/27/2016. His bilirubin level is increasing with a normalized alkaline phosphatase. His lipase has been rapidly dropping during his hospital stay. He states that he is doing better than he was yesterday and his pain has improved. He is still not passing any gas or having bowel movements. He is currently on a clear liquid diet. I am being asked by Dr. De León to evaluate the patient in consultation regarding his acute pancreatitis. PAST MEDICAL HISTORY: 1. Hypertension. 2. Hyperparathyroidism. 3. Nephrolithiasis. 4. Obstructive sleep apnea. 5. BPH. PAST SURGICAL HISTORY: Parathyroidectomy, laparoscopic inguinal hernia repair, tonsillectomy, ACL repair, cochlear implant. MEDICATIONS: Gabapentin 300 mg a day. Omeprazole 40 mg a day. Tamsulosin 40 mg a day. Trazodone 50 mg a day. Vitamin C. Bupropion 300 mg a day. Amlodipine. ALLERGIES: No known drug allergies. SOCIAL HISTORY: . Two children. Social alcohol. Former smoker. FAMILY HISTORY: No history of colorectal cancer. REVIEW OF SYSTEMS: A comprehensive 14-point review of systems was asked. Pertinent positives and negatives per HPI. PHYSICAL EXAM: VITAL SIGNS: Blood pressure 157/95, heart rate 115, respiration 20, temperature 36.6. HEENT: Anicteric sclerae. Moist mucosa. NECK: No JVD. CARDIOVASCULAR: Regular rate and rhythm. Positive S1 and S2. No murmurs or gallops appreciated. LUNGS: Clear to auscultation bilaterally. No wheezes, rales, rhonchi. ABDOMEN: Soft, distended. Minimal pain in the midepigastrium. No guarding, no rebound. EXTREMITIES: No clubbing or cyanosis. Positive edema. NEUROLOGIC: 2 through 12 grossly intact. PSYCH: Normal affect. SKIN: No rash. MUSCULOSKELETAL: No obvious joint effusions. LABORATORY DATA: Blood work: Sodium 138, potassium 3.8, BUN 13, creatinine 0.8. Total bilirubin 3.3, conjugated bilirubin 2.0, AST 27, ALT 36, alkaline phosphatase 119, lipase dropping to 471. ASSESSMENT AND PLAN: 1. Acute pancreatitis- Etiology? Biliary versus other? Will check an ultrasound of the right upper quadrant to look for biliary dilation as well to ensure that no gallstones are seen. At this time, will also recommend pancreatic rest. Will also consider increasing fluids depending upon the clinical situation. 2. History of hypertension. 3. History of obstructive sleep apnea. 4. History of benign prostatic hyperplasia. 5. History of hyperparathyroidism. Thank you very much for this consultation. /[id number]/MODL MTDD
[2016-08-30] MEDS: traZODone 50 MG TAB PO SCH (20:15)
[2016-08-30] MEDS: SENNOSIDES/DOCUSATE SODIUM TAB PO SCH (20:15)
[2016-08-31] MEDS: oxyCODONE IR 5 MG TAB PO PRN ×6 (03:32→23:44)
[2016-08-31] MEDS: D5W 1/2 NS W/ 20 KCl/L 1,000 ML IV SCH (04:39)
[2016-08-31] MEDS: KETOROLAC 15 MG/1 ML SDV IVP SCH ×4 (04:39→23:44)
[2016-08-31 04:53] LABS: HEMATOCRIT 42.7 % (40.0-51.0); HEMOGLOBIN 14.5 g/dL (13.7-17.5); MEAN CELL HEMOGLOBIN 30.8 pg (27.9-34.1); MEAN CELL VOLUME 90.7 fL (81.5-99.8); RED BLOOD CELL COUNT 4.71 10^6/uL (4.40-6.38); RED CELL DISTRIBUTION WIDTH 13.7 % (11.5-15.2)
[2016-08-31 05:13] LABS: ALANINE AMINOTRANSFERASE 46 IU/L (21-72); ALBUMIN 2.9 g/dL (3.5-5.0); ALKALINE PHOSPHATASE 126 IU/L (38-126); ANION GAP 11 mEq/L (8-16); ASPARTATE AMINOTRANSFERASE 32 IU/L (17-59); CALCIUM 8.3 mg/dL (8.5-10.4); CARBON DIOXIDE 24 mEq/l (22-31); CHLORIDE 107 mEq/L (97-110); CREATININE 0.8 mg/dL (0.7-1.3); GLOMERULAR FILTRATION RATE > 60; GLUCOSE 125 mg/dL (70-100); POTASSIUM 3.6 mEq/L (3.5-5.2); SODIUM 142 mEq/L (134-144); TOTAL PROTEIN 5.5 g/dL (6.3-8.2)
[2016-08-31 05:20] LABS: BILIRUBIN-CONJUGATED 2.6 mg/dL (0.0-0.5); BILIRUBIN-UNCONJUGATED 1.4 mg/dL (0.0-1.1)
[2016-08-31] MEDS: ENOXAPARIN 40 MG/0.4 ML SYR SC SCH (07:56)
[2016-08-31] MEDS: SENNOSIDES/DOCUSATE SODIUM TAB PO SCH ×2 (07:57→20:17)
[2016-08-31] MEDS: TAMSULOSIN HCL 0.4 MG CAP PO SCH (07:57)
[2016-08-31] MEDS: buPROPion XL 150 MG TAB PO SCH (07:57)
[2016-08-31] MEDS: POLYETHYLENE GLYCOL 3350 17 GM PKT PO PRN (07:58)
--- NOTE | 2016-08-31 09:51 | SOAPPROG ---
SOAP Progress Note Assessment/Plan: Assessment: feeling much better. pain improved. no nausea. appetite low. afebrile. bp 150/90. p 90's. comfortable. abd signif less tender. wbc 11. TB 4.6. clinically markedly improved. will adv diet today. given increasing TB - will likely need future ERCP to exclude poss CBD stone - given clinical improvement, my inclination is to allow acute episode to improve before proceeding unless numbers continue to rise further. will discuss further with dr. landa. 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 still with pain - 8/10 - more in back and less abdomen - hx chronic LBP - this is different. no cp or sob. afebrile. 150/ 90. P 100's. much more comfortable. abd soft, less tender. mild lower back tenderness. LFT TB increased 3.6. acute pancreatitis - will need future ERCP - if TB continues to increase, may need to occur prior to discharge. if improves on its own, favor outpatient procedure once feeling better. will cont clears and IVF. add toradol. cont OXY IR - minimize dilaudid if able. HTN better with increased amlodipine. pain slightly better. no further nausea. no neck complaints. Afebrile bp 160/ 97. P 110. appears more comfortable. anicteric. abd dist, soft, less tender. no ecchymosis. ca 8.6. lipase 3600. TB 1.5. WBC 22. acute pancreatitis - query hyperpara/hypercalcemia - resolved s/p subtotal parathyroidectomy on thursday. cont supportive care for now. sips of clear ok. HTN - restart home meds. Plan: 08/28/16 08:02 08/28/16 08:03 08/30/16 10:10 08/31/16 09:48 Objective: Vital Signs Temp Pulse Resp BP Pulse Ox 36.7 C 99 18 149/87 H 94 08/31/16 07:46 08/31/16 07:46 08/31/16 07:46 08/31/16 07:46 08/31/16 07:46 Laboratory Results 08/31/16 04:29 08/31/16 04:29 08/30/16 08/31/16 09/01/16 05:59 05:59 05:59 Intake Total 2200 2200 Output Total 275 Balance 1925 2200 ICD10 Worksheet Patient Problems: Problems Problem Status Onset Pancreatitis, acute Acute
--- NOTE | 2016-08-31 11:01 | SOAPPROG ---
NAIMA Progress Note Assessment/Plan: Assessment: Plan: 08/30/16 12:42 GI note See dictated note for details. Will check US of RUQ. 08/31/16 10:58 A/P 1. Acute pancreatitis- recurrent. Etiology? Biliary versus other? Recent US reveals no ductal dilation of stones. Bilirubin rising with preserved alkaline phosphatase. Clinically he is slowly improving. At this time recommend to monitor liver function tests. Will consider EUS/ERCP dependent on clinical course. Subjective: Chief complaint: Follow-up on pancreatitis Feeling better. Pain improving. Still is not passing gas. Objective: Vital Signs Temp Pulse Resp BP Pulse Ox 36.7 C 99 18 149/87 H 94 08/31/16 07:46 08/31/16 07:46 08/31/16 07:46 08/31/16 07:46 08/31/16 07:46 Laboratory Results 08/31/16 04:29 08/31/16 04:29 08/30/16 08/31/16 09/01/16 05:59 05:59 05:59 Intake Total 2200 2200 Output Total 275 Balance 1925 2200 Physical Exam - Physical Exam General Appearance: alert, no apparent distress EENT: No scleral icterus (R), No scleral icterus (L) Respiratory: normal breath sounds, No rales, No rhonchi Cardiac/Chest: regular rate, rhythm Abdomen: distended, No guarding, No rebound Skin: normal color Extremities: normal inspection Neuro/Psych: normal mood/affect, oriented x 3, No abnormal salesperson handbags II-XII ICD10 Worksheet Patient Problems: Problems Problem Status Onset Pancreatitis, acute Acute
[2016-08-31] MEDS: traZODone 50 MG TAB PO SCH (20:17)
[2016-09-01] MEDS: oxyCODONE IR 5 MG TAB PO PRN ×6 (03:28→23:23)
[2016-09-01 05:28] LABS: ALBUMIN 2.9 g/dL (3.5-5.0); BILIRUBIN,TOTAL 3.9 mg/dL (0.1-1.4); BILIRUBIN-CONJUGATED 2.6 mg/dL (0.0-0.5); BILIRUBIN-UNCONJUGATED 1.3 mg/dL (0.0-1.1); TOTAL PROTEIN 5.6 g/dL (6.3-8.2)
[2016-09-01] MEDS: KETOROLAC 15 MG/1 ML SDV IVP SCH ×4 (05:31→23:23)
--- NOTE | 2016-09-01 07:30 | SOAPPROG ---
SOAP Progress Note Assessment/Plan: Assessment: rought night - pain worsened then suddenly improved earlier today. no nausea. afebrile. 140/70. p 90-100. alert, mildly uncomfortable. abd dist , soft, min tenderness. TB 3.9, alk phos 146. 1st time elevation of alk phos with climbing TB. reviewed with dr. landa - will plan for ERCP tomorrow am. heightened risk of recurrent pancreatitis reviewed. feeling much better. pain improved. no nausea. appetite low. afebrile. bp 150/90. p 90's. comfortable. abd signif less tender. wbc 11. TB 4.6. clinically markedly improved. will adv diet today. given increasing TB - will likely need future ERCP to exclude poss CBD stone - given clinical improvement, my inclination is to allow acute episode to improve before proceeding unless numbers continue to rise further. will discuss further with dr. landa. 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 still with pain - 8/10 - more in back and less abdomen - hx chronic LBP - this is different. no cp or sob. afebrile. 150/ 90. P 100's. much more comfortable. abd soft, less tender. mild lower back tenderness. LFT TB increased 3.6. acute pancreatitis - will need future ERCP - if TB continues to increase, may need to occur prior to discharge. if improves on its own, favor outpatient procedure once feeling better. will cont clears and IVF. add toradol. cont OXY IR - minimize dilaudid if able. HTN better with increased amlodipine. pain slightly better. no further nausea. no neck complaints. Afebrile bp 160/ 97. P 110. appears more comfortable. anicteric. abd dist, soft, less tender. no ecchymosis. ca 8.6. lipase 3600. TB 1.5. WBC 22. acute pancreatitis - query hyperpara/hypercalcemia - resolved s/p subtotal parathyroidectomy on thursday. cont supportive care for now. sips of clear ok. HTN - restart home meds. Plan: 08/28/16 08:02 08/28/16 08:03 08/30/16 10:10 08/31/16 09:48 09/01/16 07:29 09/01/16 07:30 09/01/16 07:31 Objective: Vital Signs Temp Pulse Resp BP Pulse Ox 36.6 C 98 19 144/75 H 91 L 09/01/16 04:00 09/01/16 04:00 09/01/16 04:00 09/01/16 04:00 09/01/16 04:00 Laboratory Results 08/31/16 04:29 08/31/16 04:29 08/31/16 09/01/16 09/02/16 05:59 05:59 05:59 Intake Total 2200 400 Balance 2200 400 ICD10 Worksheet Patient Problems: Problems Problem Status Onset Pancreatitis, acute Acute
[2016-09-01] MEDS: SENNOSIDES/DOCUSATE SODIUM TAB PO SCH ×2 (08:07→20:39)
[2016-09-01] MEDS: TAMSULOSIN HCL 0.4 MG CAP PO SCH (08:08)
[2016-09-01] MEDS: buPROPion XL 150 MG TAB PO SCH (08:08)
[2016-09-01] MEDS: ENOXAPARIN 40 MG/0.4 ML SYR SC SCH (08:09)
--- NOTE | 2016-09-01 16:20 | SOAPPROG ---
NAIMA Progress Note Assessment/Plan: Assessment: Plan: 08/30/16 12:42 GI note See dictated note for details. Will check US of RUQ. 08/31/16 10:58 A/P 1. Acute pancreatitis- recurrent. Etiology? Biliary versus other? Recent US reveals no ductal dilation of stones. Bilirubin rising with preserved alkaline phosphatase. Clinically he is slowly improving. At this time recommend to monitor liver function tests. Will consider EUS/ERCP dependent on clinical course. 09/01/16 16:16 /P 1. Acute pancreatitis- recurrent. Etiology? Biliary versus other? Bilirubin rising with alkaline phosphatase also increasing. Recommend to proceed with EUS/ ERCP. Risks, benefits, and alternatives were discussed in detail. Keep NPO after midnight. Subjective: cc: Follow up on acute pancreatitis Feeling better. Passing gas. Objective: Vital Signs Temp Pulse Resp BP Pulse Ox 36.7 C 92 16 133/71 H 90 L 09/01/16 11:41 09/01/16 11:41 09/01/16 11:41 09/01/16 11:41 09/01/16 11:41 Laboratory Results 08/31/16 04:29 08/31/16 04:29 08/31/16 09/01/16 09/02/16 05:59 05:59 05:59 Intake Total 2200 400 660 Balance 2200 400 660 Physical Exam - Physical Exam General Appearance: alert, obese EENT: No scleral icterus (R), No scleral icterus (L) Respiratory: normal breath sounds, No crackles, No rales, No rhonchi Cardiac/Chest: regular rate, rhythm, No diastolic murmur, No systolic murmur, No irregularly irregular Abdomen: distended, No non-tender (tender in midepigastrium), No organomegaly, No guarding, No rebound Skin: normal color, warm/dry Extremities: normal inspection Neuro/Psych: alert, normal mood/affect, oriented x 3, No abnormal 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
[2016-09-01] MEDS: traZODone 50 MG TAB PO SCH (20:40)
[2016-09-02] MEDS: oxyCODONE IR 5 MG TAB PO PRN ×4 (02:19→22:16)
[2016-09-02 05:27] LABS: BILIRUBIN,TOTAL 2.5 mg/dL (0.1-1.4); BILIRUBIN-CONJUGATED 1.5 mg/dL (0.0-0.5); TOTAL PROTEIN 5.3 g/dL (6.3-8.2)
[2016-09-02] MEDS: KETOROLAC 15 MG/1 ML SDV IVP SCH ×3 (05:33→18:11)
[2016-09-02] MEDS: D5W 1/2 NS W/ 20 KCl/L 1,000 ML IV SCH (05:33)
[2016-09-02] MEDS: buPROPion XL 150 MG TAB PO SCH (09:14)
[2016-09-02] MEDS: ENOXAPARIN 40 MG/0.4 ML SYR SC SCH (09:14)
[2016-09-02] MEDS: TAMSULOSIN HCL 0.4 MG CAP PO SCH (09:14)
[2016-09-02] MEDS: SENNOSIDES/DOCUSATE SODIUM TAB PO SCH ×2 (09:14→20:40)
[2016-09-02] MEDS ORDERED: GLUCAGON,HUMAN RECOMBINANT 1 MG VIAL ONE (14:28)
[2016-09-02] MEDS ORDERED: IOTHALAMATE MEG (CONRAY) 50 ML VIAL IV ONE (14:28)
[2016-09-02] MEDS ORDERED: ONDANSETRON 4 MG/2 ML VIAL ONE (14:42)
[2016-09-02] MEDS ORDERED: ROCURONIUM 100 MG/10 ML VIAL ONE (14:43)
[2016-09-02] MEDS ORDERED: PROPOFOL/EMULSION 500 MG/50 ML BOTTLE IV ONE (14:43)
[2016-09-02] MEDS ORDERED: DEXAMETHASONE 4 MG/ML VIAL ONE (14:43)
[2016-09-02] MEDS ORDERED: LIDOCAINE 2% 100 MG/5 ML SYR ONE (14:43)
[2016-09-02] MEDS ORDERED: fentaNYL 250 MCG/5 ML INJ ONE (14:44)
[2016-09-02] MEDS ORDERED: levOFLOXACIN 500 MG/DEXTROSE/100 ML BAG IV ONE (15:22)
--- NOTE | 2016-09-02 15:34 | POSTOPPROG ---
Post Op Note Date of Operation: 09/02/16 Surgeon: Ward Almaraz Anesthesia: IV Sedation Pre-op Diagnosis: abnormal imaging. pancreatitis. Increased LFTs Post-op Diagnosis: choledocholithiais. Duodenal polyp Indication: increased LFTs, pancreatitis Procedure: EGD with bx/EUS/ERCP with sphincterotomy and stone extraction Findings: + stone Inf/Abcess present in the surg proc area at time of surgery?: No EBL: Minimal Complications: No apparent
[2016-09-02] MEDS ORDERED: NS 500 ML IV SCH (15:45)
--- NOTE | 2016-09-02 15:49 | PDANEPAE ---
ANE Past Medical History - Cardiovascular History Hx Hypertension: Yes Hx Arrhythmias: No Hx Chest Pain: No Hx Coronary Artery / Peripheral Vascular Disease: No Hx CHF / Valvular Disease: No Hx Palpitations: No Cardiovascular History Comment: HLD - Pulmonary History Hx COPD: No Hx Asthma/Reactive Airway Disease: Yes Hx Recent Upper Respiratory Infection: No Hx Oxygen in Use at Home: No Hx Sleep Apnea: Yes Sleep Apnea Screening Result - Last Documented: Positive Pulmonary History Comment: ASTHMA ATTACK LAST ONE 20 YRS AGO - Neurologic History Hx Cerebrovascular Accident: No Hx Seizures: No Hx Dementia: No - Endocrine History Hx Diabetes: No - Renal History Hx Renal Disorders: No - Liver History Hx Hepatic Disorders: No - Neurological & Psychiatric Hx Hx Neurological and Psychiatric Disorders: Yes Neurological / Psychiatric History Comment: DEPRESSION - Cancer History Hx Cancer: No - Congenital Disorder History Hx Congenital Disorders: No - GI History Hx Gastrointestinal Disorders: No - Other Health History Other Health History: ARHTRITIS, PROSTATE, PSORISIS, - Chronic Pain History Chronic Pain: No - Surgical History Prior Surgeries: HERNIA 2012. ACL RIGHT. PROSTATE. EYE LENS IMPLANT 2005 ANE Patient History - Allergies Allergies/Adverse Reactions: STRAWBERRIES Allergy (Intermediate, Uncoded 05/06/11 14:44) Hives - Home Medications Home Medications: Herbals/Supplements -Info Only 1 ea PO DAILY 08/27/16 [Last Taken Unknown] - NPO status NPO Since - Liquids (Date): 09/01/16 NPO Since - Liquids (Time): 23:55 NPO Since - Solids (Date): 09/01/16 NPO Since - Solids (Time): 19:00 - Smoking Hx Smoking Status: Former smoker - Family Anes Hx Family Hx Anesthesia Complications: NONE ANE Labs/Vital Signs - Labs Result Diagrams: 08/31/16 04:29 08/31/16 04:29 - Vital Signs Blood Pressure: 146/82 Heart Rate: 82 Respiratory Rate: 16 O2 Sat (%): 91 Height: 177.8 cm Weight: 100.244 kg ANE Physical Exam - Airway Neck exam: decreased ROM Mallampati Score: Class 3 Mouth exam: small mouth opening - Pulmonary Pulmonary: no respiratory distress - Cardiovascular Cardiovascular: regular rate and rhythym - ASA Status ASA Status: III ANE Anesthesia Plan Anesthesia Plan: general endotracheal anesthesia Urgent/Emergent Case: Leslie cameron completed preop but documented later for safe timely pt care
[2016-09-02] MEDS ORDERED: fentaNYL 100 MCG/2 ML INJ IVP PRN (15:50)
[2016-09-02] MEDS ORDERED: LABETALOL HCL 50 MG/10 ML SYR IVP PRN (15:50)
[2016-09-02] MEDS ORDERED: ONDANSETRON 4 MG/2 ML VIAL IVP PRN (15:50)
[2016-09-02] MEDS ORDERED: NALOXONE HCL 0.4 MG/ML INJ IVP PRN (15:50)
[2016-09-02] MEDS ORDERED: LR 500 ML IV PRN (15:50)
--- NOTE | 2016-09-02 15:50 | POSTANESTH ---
Post Anesthetic Evaluation Cardiovascular Status: Normal, Stable Respiratory Status: Normal, Stable Level of Consciousness/Mental Status: Can Participate in Eval Pain Control: Adequate, Prn Tx Ordered Nausea/Vomiting Control: Adequate, Prn Tx Ordered Complications Possibly Related to Anesthesia: None Noted
--- NOTE | 2016-09-02 15:56 | SOAPPROG ---
SOAP Progress Note Assessment/Plan: Assessment: decent night. pain better. Afebrile. abd soft, less tender. clinically improved. for ERCP today. rought night - pain worsened then suddenly improved earlier today. no nausea. afebrile. 140/70. p 90-100. alert, mildly uncomfortable. abd dist, soft, min tenderness. TB 3.9, alk phos 146. 1st time elevation of alk phos with climbing TB. reviewed with dr. landa - will plan for ERCP tomorrow am. heightened risk of recurrent pancreatitis reviewed. feeling much better. pain improved. no nausea. appetite low. afebrile. bp 150/90. p 90's. comfortable. abd signif less tender. wbc 11. TB 4.6. clinically markedly improved. will adv diet today. given increasing TB - will likely need future ERCP to exclude poss CBD stone - given clinical improvement, my inclination is to allow acute episode to improve before proceeding unless numbers continue to rise further. will discuss further with dr. landa. 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 still with pain - 8/10 - more in back and less abdomen - hx chronic LBP - this is different. no cp or sob. afebrile. 150/ 90. P 100's. much more comfortable. abd soft, less tender. mild lower back tenderness. LFT TB increased 3.6. acute pancreatitis - will need future ERCP - if TB continues to increase, may need to occur prior to discharge. if improves on its own, favor outpatient procedure once feeling better. will cont clears and IVF. add toradol. cont OXY IR - minimize dilaudid if able. HTN better with increased amlodipine. pain slightly better. no further nausea. no neck complaints. Afebrile bp 160/ 97. P 110. appears more comfortable. anicteric. abd dist, soft, less tender. no ecchymosis. ca 8.6. lipase 3600. TB 1.5. WBC 22. acute pancreatitis - query hyperpara/hypercalcemia - resolved s/p subtotal parathyroidectomy on thursday. cont supportive care for now. sips of clear ok. HTN - restart home meds. Plan: 08/28/16 08:02 08/28/16 08:03 08/30/16 10:10 08/31/16 09:48 09/01/16 07:29 09/01/16 07:30 09/01/16 07:31 09/02/16 15:55 Objective: Vital Signs Temp Pulse Resp BP Pulse Ox 36.4 C 82 16 146/82 H 91 L 09/02/16 14:24 09/02/16 15:49 09/02/16 15:49 09/02/16 15:49 09/02/16 15:49 Laboratory Results 08/31/16 04:29 08/31/16 04:29 09/01/16 09/02/16 09/03/16 05:59 05:59 05:59 Intake Total 400 1160 Balance 400 1160 ICD10 Worksheet Patient Problems: Problems Problem Status Onset Pancreatitis, acute Acute
[2016-09-02] MEDS ORDERED: levOFLOXACIN 500 MG/DEXTROSE 100 ML IV ONE (16:15)
[2016-09-02] MEDS ORDERED: INDOMETHACIN 50 MG SUPP PR ONE (16:15)
[2016-09-02 19:50] VITALS: RESP 16
[2016-09-02] MEDS: traZODone 50 MG TAB PO SCH (20:40)
[2016-09-03] MEDS: KETOROLAC 15 MG/1 ML SDV IVP SCH ×3 (00:02→12:18)
[2016-09-03] MEDS: oxyCODONE IR 5 MG TAB PO PRN (03:19)
[2016-09-03 04:54] LABS: BILIRUBIN,TOTAL 2.6 mg/dL (0.1-1.4); BILIRUBIN-CONJUGATED 1.8 mg/dL (0.0-0.5); BILIRUBIN-UNCONJUGATED 0.8 mg/dL (0.0-1.1); TOTAL PROTEIN 5.4 g/dL (6.3-8.2)
--- NOTE | 2016-09-03 08:26 | SOAPPROG ---
NAIMA Progress Note Assessment/Plan: Assessment: Plan: 08/30/16 12:42 GI note See dictated note for details. Will check US of RUQ. 08/31/16 10:58 A/P 1. Acute pancreatitis- recurrent. Etiology? Biliary versus other? Recent US reveals no ductal dilation of stones. Bilirubin rising with preserved alkaline phosphatase. Clinically he is slowly improving. At this time recommend to monitor liver function tests. Will consider EUS/ERCP dependent on clinical course. 09/01/16 16:16 /P 1. Acute pancreatitis- recurrent. Etiology? Biliary versus other? Bilirubin rising with alkaline phosphatase also increasing. Recommend to proceed with EUS/ ERCP. Risks, benefits, and alternatives were discussed in detail. Keep NPO after midnight. 09/03/16 08:14 A/P 1. Acute pancreatitis- recurrent. Increasing LFTs. S/p EUS/ERCP with significant debris/small stone removed with CBD. No apparent complications from procedure. Clinically improving. Clear liquid diet started. Subjective: cc: Follow up pancreatitis Improving. Less pain (3/10). Passing gas. Objective: Vital Signs Temp Pulse Resp BP Pulse Ox 36.6 C 82 16 145/78 H 93 09/03/16 07:14 09/03/16 07:14 09/03/16 07:14 09/03/16 07:14 09/03/16 07:14 Laboratory Results 08/31/16 04:29 08/31/16 04:29 09/02/16 09/03/16 09/04/16 05:59 05:59 05:59 Intake Total 1160 1674 Balance 1160 1674 Physical Exam - Physical Exam General Appearance: alert, no apparent distress EENT: No scleral icterus (R), No scleral icterus (L) Respiratory: lungs clear, normal breath sounds Cardiac/Chest: regular rate, rhythm Abdomen: normal bowel sounds, distended, No guarding, No rebound Skin: normal color Neuro/Psych: normal mood/affect, oriented x 3, 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
--- NOTE | 2016-09-03 08:54 | GPN ---
[f rep st] PROCEDURE NOTE DATE OF PROCEDURE: 09/02/2016 PROCEDURE: Esophagogastroduodenoscopy with biopsy, endoscopic ultrasound. INDICATION: The patient is a 75-year-old male who presents with evaluation for acute pancreatitis as well as increasing liver function tests. He presents for further evaluation. CONSENT: Risks, benefits, and alternatives of the procedure were discussed in great detail with the patient. Risks of infection, bleeding, perforation, sedation, and pancreatitis were discussed. All questions answered, and informed obtained. MEDICATIONS: General anesthesia. Please see anesthesia record for details. ESTIMATED BLOOD LOSS: Insignificant. ESOPHAGOGASTRODUODENOSCOPY EXAMINATION: The Olympus upper endoscope was introduced into the mouth and advanced to the esophagus. The proximal, mid, and distal esophagus was normal in appearance. The stomach was entered and closely examined including retroflexed views of the angularis, cardia, and fundus. The patient was noted a moderate-size hiatal hernia. In the duodenal bulb, on the anterior wall, the mucosa was nodular versus polypoid lesion. Biopsies were taken. The second portion of the duodenum was normal in appearance. ENDOSCOPIC ULTRASOUND EXAMINATION: The Olympus linear echoendoscope was introduced in the mouth and advanced to the second portion of the duodenum. The pancreas was carefully examined from the uncinate process to the tail, where the spleen was seen. The patient was noted to have a mildly dilated pancreatic duct, and it measured approximately 3.5 mm in the head. The pancreatic duct wall was hyperechoic. The pancreatic parenchyma had hyperechoic foci. The common bile duct was seen, and significant debris and a possible 2 mm stone (unsure since no acoustic shadowing noted) was noted throughout the duct. Sludge was also noted in the gallbladder. The pancreatic duct and common bile duct were seen merging together with no mass lesion seen. The liver was normal in appearance. No suspicious periportal, peripancreatic, or perigastric nodes were appreciated. IMPRESSION: 1. Significant debris with possible 2 mm stone (no acoustic shadowing noted) in the common bile duct. 2. Hiatal hernia. 3. Nodular mucosa in duodenum, status post biopsy. RECOMMENDATIONS: 1. Follow up on biopsy results. 2. Proceed with ERCP. /[id number]/MODL MTDD
[2016-09-03] MEDS: ENOXAPARIN 40 MG/0.4 ML SYR SC SCH (09:11)
[2016-09-03] MEDS: POLYETHYLENE GLYCOL 3350 17 GM PKT PO PRN (09:11)
[2016-09-03] MEDS: TAMSULOSIN HCL 0.4 MG CAP PO SCH (09:12)
[2016-09-03] MEDS: buPROPion XL 150 MG TAB PO SCH (09:12)
[2016-09-03] MEDS: SENNOSIDES/DOCUSATE SODIUM TAB PO SCH (09:12)
[2016-09-03 11:13] VITALS: BP 119/58; PULSE 89; TEMP 98.3; O2SAT 89
--- NOTE | 2016-09-03 12:15 | GPN ---
[f rep st] PROCEDURE NOTE DATE OF PROCEDURE: 09/02/2016 PROCEDURE: Endoscopic retrograde cholangiopancreatography with biliary sphincterotomy, extraction of debris/small stone. INDICATION: The patient is a 75-year-old male who presents to the hospital with acute pancreatitis. On blood work, he was noted to have a progressive elevation in his liver function test. He presents for further evaluation. CONSENT: Risks, benefits, and alternatives of the procedure were discussed in great detail with the patient. Risks of infection, bleeding, perforation, pancreatitis, and sedation were discussed. All questions answered, and informed consent was obtained. MEDICATIONS: Propofol. Please see anesthesia record for details. ESTIMATED BLOOD LOSS: Insignificant. ENDOSCOPIC RETROGRADE CHOLANGIOPANCREATOGRAPHY EXAMINATION: The Olympus duodenoscope was introduced into the mouth and advanced to the second portion of duodenum. The ampulla was brought into view and was normal in appearance. Using a [employer] sphincterotome with 0.035 inch wire, a wire was advanced into the common bile duct after a few attempts using a wire-guided technique. A limited injection was made to confirm position. Occlusion cholangiogram was performed with a 12mm balloon. Excellent flow of bile noted with good visualization of the common bile duct. The entire biliary tree was visualized. I personally interpreted the images in real time. A 1 cm biliary sphincterotomy was made and multiple balloon sweeps made over a 12 mm balloon with the extraction of debris and a possible 2 mm stone (solid debris noted on the end of the balloon) IMPRESSION: Choledocholithiasis, status post ERCP biliary sphincterotomy with extraction. RECOMMENDATIONS: 1. NPO till tomorrow. 2. Monitor liver function tests. 3. Continue previous medications. /[id number]/MODL MTDD
--- NOTE | 2016-09-03 20:06 | GDS ---
[f rep st] DISCHARGE SUMMARY REASON FOR ADMISSION: Pancreatitis. HISTORY: A 75-year-old male with a significant history for hyperparathyroidism and pancreatitis. Tony francis underwent a recent parathyroidectomy. Postoperatively, the patient was readmitted with pancreatit is. He had previously been admitted and a workup for cholelithiasis in the past had been found to b e negative. On this admission, the patient was managed with bowel rest. He was noted to have an in crease in his bilirubin and alkaline phosphatase. He subsequently underwent an ERCP by Dr. Almaraz. Tony francis was found to have a small common duct stone with sludge. A sphincterotomy was performed, and the patient recovered uneventfully from this procedure. He was discharged to home on the in signif icantly improved condition, pain-free, and tolerating a regular diet. He was to resume all pre-hosp ital medications. Of note, his amlodipine was increased to 10 mg daily throughout his hospitalization for a significan tly elevated blood pressure on admission. He will be seen in followup by Dr. D eLeón in 3-4 weeks. Rep eat parathyroid hormone and liver enzymes will be obtained at that time. We did discuss the recomme ndation for future laparoscopic cholecystectomy given the bile duct findings on this admission. He was noted to have complete resolution of his hyperparathyroidism by discharge. No dietary restricti ons were offered nor activity restrictions offered. Care plan was discussed with the patient and massimo kennedy at bedside. /[id number]/MODL
== END 2016-09-03 12:27 | disposition home or self-care (01) | DRG 444 ==
LOC: F3N 17:21 → INTOOBSV 17:21 → OBSVTOIN 17:45
PROVIDERS: ADMIT Surgery; ATTEND Surgery
PROC: 0DB98ZX Excision of Duodenum, Via Natural or Artificial Opening Endoscopic, Diagnostic (ICD-10-PCS; principal; 2016-09-02 14:15)
PROC: 0FC98ZZ Extirpation of Matter from Common Bile Duct, Via Natural or Artificial Opening Endoscopic (ICD-10-PCS; principal; 2016-09-02 14:15)
DX: K80.50 Calculus of bile duct without cholangitis or cholecystitis without obstruction (principal); K85.90 Acute pancreatitis without necrosis or infection, unspecified; I10 Essential (primary) hypertension; G47.33 Obstructive sleep apnea (adult) (pediatric); E21.3 Hyperparathyroidism, unspecified; N40.0 Benign prostatic hyperplasia without lower urinary tract symptoms
CPT/HCPCS: G0378; J0360; J1100; J1170; J1610; J1650; J1885; J1956; J2001; J2405; J2704; J3010; Q9961

== ENCOUNTER → 2016-08-27 | Outpatient (CLI) | payer OTHER | LOC: FIMAGING 15:42 | PROVIDERS: ATTEND Surgery | DX: R11.10 Vomiting, unspecified (principal); Z98.890 Other specified postprocedural states ==

== ENCOUNTER → 2016-12-11 | Outpatient (CLI) | payer OTHER | LOC: FIMAGING 10:07 | PROVIDERS: ATTEND Family Medicine | DX: R31.29 Other microscopic hematuria (principal) ==

== ENCOUNTER 2017-03-24 08:44 | Emergency (ER) | payer OTHER ==
[2017-03-24] MEDS ORDERED: NS 1,000 ML IV ONE (08:59)
--- NOTE | 2017-03-24 08:59 | EDPHY ---
H & P Stated Complaint: LLQ pain radiating to L lower bk since last night, "feels like kid stone" Time Seen by Provider: 03/24/17 08:58 HPI/ROS: HPI: This is a 76-year-old male who presents with Chief Complaint: LLQ pain radiating to L lower bk since last night, "feels like kid stone" Location: Left lower quadrant Quality: Pain Duration: Since yesterday Signs and Symptoms: no fever, + nausea, no vomiting, no hematemesis, no blood in stool, + abdominal bloating, no diarrhea, + back pain, no urinary symptoms, no testicular/groin pain, no indigestion, no chest pain, no shortness of breath , no hematuria Timing: Waxes and wanes Severity: Moderate Context: Patient is status post hernia repair x2, cholecystectomy presents with gradual onset of left lower quadrant pain radiating to left lower back since yesterday evening accompanied by nausea. Denies any urinary hesitancy/ frequency or hematuria. Patient reports that he has not had a bowel movement in 1-2 days and is not passing flatus. Denies any fever/injury/heavy lifting/ diarrhea/testicular groin pain. Patient does not have a history of kidney stones /diverticulitis. Was able to eat and drink normally all day yesterday. He is not breakfast eater so he has not eaten today. Modifying Factors: None Comment: ROS: see HPI Constitutional: No fever, no chills, no weight loss Eyes: No blurred vision Respiratory: No shortness of breath, no cough Cardiovascular: No chest pain, no palpitations Gastrointestinal: No nausea, no vomiting, no diarrhea, no hematemesis, no blood in stool Genitourinary: No dysuria, no blood in urine Extremities: No myalgias, no edema Neurologic: No weakness, no numbness Skin: No rashes, no petechiae Hematologic: No bruising, no bleeding MEDICAL/SURGICAL/SOCIAL HISTORY: PSH:cochlear implant; hernia repair x 2; r knee; wisdom teeth; T&A; cholecystectomy, parathyroid PMH: depression; htn; insomnia; psoriasis;NATALIYA/cpap, pancreatitis Social history: . Retired. CONSTITUTIONAL: Well-appearing elderly white male who is polite and cooperative , at bedside, awake and alert, no obvious distress HEENT: Atraumatic and normocephalic, PERRL, EOMI. Tympanic membranes clear. Oropharynx clear, no exudate and moist pink mucosa. Airway patent. No lymphadenopathy. No meningismus. Cardiovascular: Normal S1/S2, regular rate, regular rhythm, without murmur rub or gallop. PULMONARY/CHEST: Symmetrical and nontender. Clear to auscultation bilaterally. Good air movement. No accessory muscle usage. ABDOMEN: Soft, protuberant, nondistended, nontender, no rebound, no guarding, no peritoneal signs, no masses or organomegaly. No CVAT. Hypoactive bowel sounds x4. EXTREMITIES: 2/2 pulses, strength 5/5, no deformities, no clubbing, no cyanosis or edema. NEUROLOGICAL: no focal neuro deficits. GCS 15. SKIN: Warm and dry, no erythema. no rash. Good capillary refill. Source: Patient, Family () Exam Limitations: No limitations - Personal History Current Tetanus/Diphtheria Vaccine: Unsure Current Tetanus Diphtheria and Acellular Pertussis (TDAP): Unsure - Medical/Surgical History Hx Asthma: No Hx Chronic Respiratory Disease: No Hx Diabetes: No Hx Cardiac Disease: No Hx Renal Disease: No Hx Cirrhosis: No Hx Alcoholism: No Hx HIV/AIDS: No Hx Splenectomy or Spleen Trauma: No Other PMH: PSH:cochlear implant; hernia repair x 2; r knee; wisdom teeth; T&A; christopher, parathyroid. PMH: depression; htn; insomnia; psoriasis;NATALYIA/cpap, pancreatitis - Social History Smoking Status: Former smoker Constitutional: Initial Vital Signs Temperature (C) 36.5 C 03/24/17 08:50 Heart Rate 90 03/24/17 08:50 Respiratory Rate 16 03/24/17 08:50 Blood Pressure 134/92 H 03/24/17 08:50 O2 Sat (%) 95 03/24/17 08:50 O2 Delivery Mode Room Air Allergies/Adverse Reactions: STRAWBERRIES Allergy (Intermediate, Uncoded 05/06/11 14:44) Hives Home Medications: Medication Instructions Recorded Amlodipine Besylate 03/24/17 Aspirin 81mg (*) 03/24/17 Betamethasone Dipropionate 03/24/17 GABAPENTIN 03/24/17 Omeprazole 03/24/17 Tamsulosin HCl [Flomax 0.4 MG (*)] 0.4 mg PO DAILY #10 cap 03/24/17 oxyCODONE/APAP 5/325 [Percocet 1 - 2 tab PO Q4H PRN #20 tab 03/24/17 5/325 (*)] Medical Decision Making - Diagnostics Imaging Results: Imaging Impressions Abdomen/Pelvis CT 03/24/17 08:59 Impression: 1. Moderate obstructive uropathy, secondary to a 5-mm stone at the left ureterovesical junction with perinephric and perienteric stranding, suggesting forniceal rupture. 2. Left nephrolithiasis. 3. Fatty liver. 4. Additional findings as above. Findings discussed with Grace Simons PA-C on March 24, 2017 at 1003 hours. Attention: This CT examination is specifically designed to evaluate patients who are clinically suspected of having acute obstructive uropathy. This examination does not use radiographic contrast, and as such, provides only a limited evaluation of the abdomen, pelvis and retroperitoneum. If there is further clinical suspicion for pathological conditions other than obstructive uropathy, a complete CT evaluation of the abdomen and pelvis utilizing intravenous and oral contrast should be considered. ED Course/Re-evaluation: Urinalysis, labs, IV fluids, IV medications, CT abdomen and pelvis scan ordered Vital signs reviewed upon arrival in stable without fever or systemic signs Given 1 L normal saline, IV morphine 4 mg upon arrival with adequate relief Patient denies nausea currently and politely declined antiemetics. Urinalysis shows no signs of infection; no hematuria 1000: Called by radiologist Dr. Matta who advised that there is a 5 mm distal ureteral stone approximately 1 cm above the bladder; mild hydro. Of note there is 3 stones in the left kidney. Given IV Toradol, p.o. Flomax. Labs show mild leukocytosis; creatinine 1.3 1020: Reassessed patient: Reports that pain is completely relieved. Discussed avoiding constipation while being on pain medication. Eating and drinking without difficulty and pain controlled. Strainer given to patient to take home. This patient was seen under the supervision of my secondary supervising physician. I evaluated care for this patient independently. Differential Diagnosis: Abdominal pain including but not limited to appendicitis, cholecystitis, diverticulitis, ureterolithiasis gastritis and urinary tract infection. - Data Points Laboratory Results: Laboratory Results 03/24/17 09:13 03/24/17 09:13 03/24/17 03/24/17 03/24/17 09:13 09:13 09:01 WBC 12.79 10^3/uL H 10^3/uL (3.80-9.50) RBC 5.83 10^6/uL 10^6/uL (4.40-6.38) Hgb 18.0 g/dL H g/dL (13.7-17.5) Hct 50.8 % % (40.0-51.0) MCV 87.1 fL fL (81.5-99.8) MCH 30.9 pg pg (27.9-34.1) MCHC 35.4 g/dL g/dL (32.4-36.7) RDW 13.5 % % (11.5-15.2) Plt Count 185 10^3/uL 10^3/uL (150-400) MPV 9.9 fL fL (8.7-11.7) Neut % (Auto) 83.0 % H % (39.3-74.2) Lymph % (Auto) 6.8 % L % (15.0-45.0) [place] % (Auto) 8.1 % % (4.5-13.0) Eos % (Auto) 1.1 % % (0.6-7.6) Baso % (Auto) 0.5 % % (0.3-1.7) Nucleat RBC Rel Count 0.0 % % (0.0-0.2) Absolute Neuts (auto) 10.63 10^3/uL H 10^3/uL (1.70-6.50) Absolute Lymphs (auto) 0.87 10^3/uL L 10^3/uL (1.00-3.00) Absolute Monos (auto) 1.03 10^3/uL H 10^3/uL (0.30-0.80) Absolute Eos (auto) 0.14 10^3/uL 10^3/uL (0.03-0.40) Absolute Basos (auto) 0.06 10^3/uL 10^3/uL (0.02-0.10) Absolute Nucleated RBC 0.00 10^3/uL 10^3/uL (0-0.01) Immature Gran % 0.5 % % (0.0-1.1) Immature Gran # 0.06 10^3/uL 10^3/uL (0.00-0.10) Sodium 142 mEq/L mEq/L (135-145) Potassium 4.2 mEq/L mEq/L (3.5-5.2) Chloride 106 mEq/L mEq/L (97-110) Carbon Dioxide 20 mEq/l L mEq/l (22-31) Anion Gap 16 mEq/L mEq/L (8-16) BUN 15 mg/dL mg/dL (7-23) Creatinine 1.3 mg/dL mg/dL (0.7-1.3) Estimated GFR 54 Glucose 134 mg/dL H mg/dL (70-100) Calcium 9.9 mg/dL mg/dL (8.5-10.4) Total Bilirubin 0.8 mg/dL mg/dL (0.1-1.4) Conjugated Bilirubin 0.4 mg/dL mg/dL (0.0-0.5) Unconjugated Bilirubin 0.4 mg/dL mg/dL (0.0-1.1) AST 30 IU/L IU/L (17-59) ALT 45 IU/L IU/L (21-72) Alkaline Phosphatase 184 IU/L H IU/L (38-126) Total Protein 7.2 g/dL g/dL (6.3-8.2) Albumin 4.3 g/dL g/dL (3.5-5.0) Lipase 134 IU/L IU/L (23-300) Urine Color YELLOW Urine Appearance CLEAR Urine pH 7.0 (5.0-7.5) Ur Specific [place] 1.012 (1.002-1.030) Urine Protein NEGATIVE (NEGATIVE) Urine Ketones NEGATIVE (NEGATIVE) Urine Blood NEGATIVE (NEGATIVE) Urine Nitrate NEGATIVE (NEGATIVE) Urine Bilirubin NEGATIVE (NEGATIVE) Urine Urobilinogen NEGATIVE EU EU (0.2-1.0) Ur Leukocyte Esterase NEGATIVE (NEGATIVE) Urine Glucose NEGATIVE (NEGATIVE) Medications Given: Discontinued Medications Sodium Chloride (Ns) 1,000 mls @ 0 mls/hr IV ONCE ONE; Wide Open PRN Reason: Protocol Stop: 03/24/17 09:00 Last Admin: 03/24/17 09:15 Dose: 1,000 mls Ketorolac Tromethamine (Toradol) 15 mg IVP EDNOW ONE Stop: 03/24/17 10:05 Last Admin: 03/24/17 10:11 Dose: 15 mg Morphine Sulfate (Morphine) 4 mg IVP EDNOW ONE Stop: 03/24/17 09:05 Last Admin: 03/24/17 10:01 Dose: 4 mg Tamsulosin HCl (Flomax) 0.4 mg PO EDNOW ONE Stop: 03/24/17 10:05 Last Admin: 03/24/17 10:12 Dose: 0.4 mg Departure - Departure Disposition: Home, Routine, Self-Care Clinical Impression: Ureterolithiasis, Renal colic on left side Condition: Good Instructions: Kidney Stones (ED), Renal Colic (ED), Ureteral Stones (ED) Additional Instructions: Consume a minimum of 8-10 glasses of water or electrolyte fluid replacement drinks that include Gatorade, Powerade, Pedialyte. Take Flomax daily until you pass the stone. Please strain your urine until the stone passes; save the stone to bring to urologist. Please establish care with Urology for follow-up in 1 week. Return to the Emergency Room if symptoms do not resolve in the next 48-72 hours , you spike a fever > 102 F, or experience intractable abdominal pain/nausea/ vomiting. Referrals: Edmond Espino DO [Primary Care Provider] - As per Instructions Bharath Jackson MD [Medical Doctor] - As per Instructions Prescriptions: oxyCODONE/APAP 5/325 [Percocet 5/325 (*)] 1 - 2 tab PO Q4H PRN #20 tab PRN Reason: Pain, Severe Tamsulosin HCl [Flomax 0.4 MG (*)] 0.4 mg PO DAILY #10 cap
[2017-03-24 09:24] LABS: PLATELET COUNT 185 10^3/uL (150-400)
[2017-03-24] MEDS ORDERED: TAMSULOSIN HCL 0.4 MG CAP PO ONE (10:04)
[2017-03-24] MEDS ORDERED: KETOROLAC 15 MG/1 ML SDV IVP ONE (10:04)
[2017-03-24 10:41] VITALS: BP 142/85; PULSE 66; RESP 18; TEMP 98.6; O2SAT 94
== END 2017-03-24 10:40 | disposition home or self-care (01) ==
DX: N20.1 Calculus of ureter (principal); E86.9 Volume depletion, unspecified; I10 Essential (primary) hypertension; Z87.891 Personal history of nicotine dependence; Z79.82 Long term (current) use of aspirin
CPT/HCPCS: 74176; 96361; 96374; 96375; 99285; J1885; J2270

== ENCOUNTER 2018-02-12 14:00 | Observation (INO) | payer OTHER ==
--- NOTE | 2018-03-26 06:20 | PDHPUP ---
History & Physical Update H&P update statement: This history and physical update is based on an assessment of the patient which was completed after admission or registration (within 24 hours), but prior to the surgery/procedure. H&P update: H&P reviewed & patient examined, no change in patient's condition since H&P completed
[2018-03-26] MEDS ORDERED: DEXAMETHASONE 4 MG/ML VIAL IVP ONE (07:07)
[2018-03-26] MEDS ORDERED: ACETAMINOPHEN 325 MG TAB PO ONE (07:07)
[2018-03-26] MEDS ORDERED: ceFAZolin 2 GM/DEXTROSE 100 ML IV ONE (07:07)
[2018-03-26] MEDS ORDERED: FAMOTIDINE 20 MG TAB PO ONE (07:07)
[2018-03-26] MEDS ORDERED: LR 1,000 ML IV ONE (07:13)
[2018-03-26] MEDS ORDERED: TRANEXAMIC ACID 3,000 MG/50 ML BAG IRR ONE (07:57)
[2018-03-26] MEDS: LIDOCAINE 1% 2 ML INJ ID PRN ×2 (08:08→08:18)
[2018-03-26] MEDS ORDERED: FAMOTIDINE 20 MG TAB ONE (08:22)
[2018-03-26] MEDS ORDERED: MIDAZOLAM 2 MG/2 ML VIAL ONE (08:58)
[2018-03-26] MEDS ORDERED: ROPIVACAINE 0.2% 80 MG, EPINEPHrine 0.2 MG, KETOROLAC TROMETHAMINE 30 MG in SYRINGE 0 ML IU ONE (09:00)
[2018-03-26] MEDS ORDERED: TRANEXAMIC ACID 3,000 MG in NS (SYRINGE) 50 ML IRR ONE (09:00)
[2018-03-26] MEDS ORDERED: VANCOMYCIN 1 GM VIAL ONE (09:01)
[2018-03-26] MEDS ORDERED: MIDAZOLAM 2 MG/2 ML VIAL IVP ONE (09:03)
--- NOTE | 2018-03-26 09:04 | PDANEPAE ---
ANE Past Medical History - Cardiovascular History Hx Hypertension: Yes Hx Arrhythmias: No Hx Chest Pain: No Hx Coronary Artery / Peripheral Vascular Disease: No Hx CHF / Valvular Disease: No Hx Palpitations: No Cardiovascular History Comment: HYPERLIPIDEMIA - Pulmonary History Hx COPD: No Hx Asthma/Reactive Airway Disease: No Hx Recent Upper Respiratory Infection: No Hx Oxygen in Use at Home: No Hx Sleep Apnea: Yes Sleep Apnea Screening Result - Last Documented: Positive Pulmonary History Comment: POS SLEEP APNEA W/CPAP. ASTHMA 40 YRS AGO - Neurologic History Hx Cerebrovascular Accident: No Hx Seizures: No Hx Dementia: No - Endocrine History Hx Diabetes: No Obesity: mild - Renal History Hx Renal Disorders: No Renal History Comment: KIDNEY STONES - Liver History Hx Hepatic Disorders: No - Neurological & Psychiatric Hx Hx Neurological and Psychiatric Disorders: Yes Neurological / Psychiatric History Comment: DEPRESSION - Cancer History Hx Cancer: No - Congenital Disorder History Hx Congenital Disorders: No - GI History GERD: no Hx Gastrointestinal Disorders: No - Other Health History Other Health History: ARHTRITIS,PSORIASIS, - Chronic Pain History Chronic Pain: No - Surgical History Prior Surgeries: PARATHYROIDECTOMY X3. CHOLECYSTECTOMY. HERNIA 2012. ACL RIGHT. PROSTATE. EYE LENS IMPLANT 2006. COCHLEAR IMPLANT ANE Review of Systems Review of Systems: - Exercise capacity METS (RN): 4 METS ANE Patient History - Allergies Allergies/Adverse Reactions: STRAWBERRIES Allergy (Intermediate, Uncoded 05/06/11 14:44) Hives - Home Medications Home medications: home medication list seen and reviewed Home Medications: Betamethasone Dipropionate 1 litzy TP DAILY PRN 03/24/17 [Last Taken 03/22/18] Gabapentin [Neurontin 300 MG (*)] 300 mg PO BID 03/24/17 [Last Taken 03/25/18] amLODIPine BESYLATE [Norvasc 5 mg (*)] 5 mg PO DAILY 03/24/17 [Last Taken 06:15] Ascorbic Acid [Vitamin C 500 mg (*)] 500 mg PO BID 01/21/18 [Last Taken 03/06/18 ] Atorvastatin Calcium [Lipitor 20 mg (*)] 20 mg PO DAILY 01/21/18 [Last Taken 09/03] Bupropion HCl [Wellbutrin Xl] 300 mg PO DAILY 01/21/18 [Last Taken 03/25/18] Ibuprofen [Motrin (*)] 200 mg PO TID PRN 01/21/18 [Last Taken 03/21/18] - NPO status NPO Status: no food or drink >8 hours NPO Since - Liquids (Date): 03/26/18 NPO Since - Liquids (Time): 06:15 NPO Since - Solids (Date): 03/25/18 NPO Since - Solids (Time): 19:00 - Anes Hx Anes Hx: no prior problems - Smoking Hx Smoking Status: Former smoker - Family Anes Hx Family Hx Anesthesia Complications: NONE ANE Labs/Vital Signs - Vital Signs Blood Pressure: 112/76 Heart Rate: 77 Respiratory Rate: 14 O2 Sat (%): 91 Height: 175.26 cm Weight: 97.522 kg ANE Physical Exam - Airway Neck exam: FROM Mallampati Score: Class 3 Mouth exam: normal dental/mouth exam - Pulmonary Pulmonary: no respiratory distress, no rales or rhonchi, clear to auscultation - Cardiovascular Cardiovascular: regular rate and rhythym, no murmur, rub, or gallop - ASA Status ASA Status: II ANE Anesthesia Plan Anesthesia Plan: spinal Regional Anesthesia: adductor canal FNB
[2018-03-26] MEDS ORDERED: DEXAMETHASONE 4 MG/ML VIAL ONE (09:07)
[2018-03-26] MEDS ORDERED: PROPOFOL 200 MG/20 ML VIAL ONE ×3 (09:07→10:09)
[2018-03-26] MEDS ORDERED: LIDOCAINE 2% 5 ML SDV ONE (09:33)
[2018-03-26] MEDS ORDERED: ONDANSETRON 4 MG/2 ML VIAL IVP PRN ×2 (10:01→11:12)
[2018-03-26] MEDS ORDERED: ACETAMINOPHEN 500 MG TAB PO PRN (10:01)
[2018-03-26] MEDS ORDERED: fentaNYL 100 MCG/2 ML INJ IVP PRN (10:01)
[2018-03-26] MEDS ORDERED: LR 500 ML IV PRN (10:01)
[2018-03-26] MEDS ORDERED: PROMETHAZINE HCL 25 MG/ML INJ IVP PRN ×2 (10:01→11:12)
[2018-03-26] MEDS ORDERED: HYDROCODONE/APAP 5/325 TAB PO PRN (10:01)
[2018-03-26] MEDS ORDERED: NALOXONE HCL 0.4 MG/ML INJ IVP PRN (10:01)
[2018-03-26] MEDS ORDERED: CYCLOBENZAPRINE 10 MG TAB PO PRN (11:12)
[2018-03-26] MEDS ORDERED: LACTULOSE 20 GM/30 ML UDCUP PO PRN (11:12)
[2018-03-26] MEDS ORDERED: DIPHENOXYLATE/ATROPINE LOMOTIL 1 TAB PO PRN (11:12)
[2018-03-26] MEDS ORDERED: ONDANSETRON DISINTEGRATING 4 MG TAB PO PRN (11:12)
[2018-03-26] MEDS ORDERED: PROMETHAZINE HCL 25 MG SUPPR PR PRN (11:12)
[2018-03-26] MEDS ORDERED: METOCLOPRAMIDE 10 MG/2 ML VIAL IVP PRN (11:12)
[2018-03-26] MEDS ORDERED: POLYETHYLENE GLYCOL 3350 17 GM PKT PO PRN (11:12)
[2018-03-26] MEDS ORDERED: diphenhydrAMINE 25 MG CAP PO PRN (11:12)
[2018-03-26] MEDS ORDERED: TEMAZEPAM 15 MG CAP PO PRN (11:12)
[2018-03-26] MEDS ORDERED: MAGNESIUM HYDROXIDE 30 ML UDCUP PO PRN (11:12)
[2018-03-26] MEDS ORDERED: BISACODYL 10 MG SUPP PR PRN (11:12)
--- NOTE | 2018-03-26 11:12 | POSTOPPROG ---
Post Op Note Date of Operation: 03/26/18 Surgeon: Gema Cook Maxillofacial Surgeon: Micki Cook PA-C, Anny Phelan PA-C Anesthesiologist: dr. draper Anesthesia: Spinal, Other (Specify) (adductor canal block) Pre-op Diagnosis: right knee OA Post-op Diagnosis: same Indication: right knee pain Procedure: R TKA robot assisted Findings: severe knee OA Inf/Abcess present in the surg proc area at time of surgery?: No EBL: 50-100
--- NOTE | 2018-03-26 11:17 | POSTANESTH ---
Post Anesthetic Evaluation Cardiovascular Status: Normal, Stable, Similar to Pre-Op Cond Respiratory Status: Normal, Stable, Tx Decrease in SpO2 Level of Consciousness/Mental Status: Can Participate in Eval, Mildly Sleepy, Arousable Pain Control: Adequate, Prn Tx Ordered Nausea/Vomiting Control: Adequate, Prn Tx Ordered Complications Possibly Related to Anesthesia: None Noted (Rt adductor canal nerve block performed in PACU (20 ml 0.375% bupiv) without complications.)
[2018-03-26] MEDS ORDERED: LR 1,000 ML IV SCH (11:30)
[2018-03-26] MEDS: ACETAMINOPHEN 325 MG TAB PO SCH ×3 (13:50→23:24)
[2018-03-26] MEDS: oxyCODONE IR 5 MG TAB PO PRN ×3 (15:55→23:26)
[2018-03-26] MEDS: ceFAZolin 2 GM/DEXTROSE 100 ML IV SCH ×2 (16:18→23:25)
[2018-03-26] MEDS: SENNOSIDES/DOCUSATE SODIUM TAB PO SCH (20:19)
[2018-03-26] MEDS: FAMOTIDINE 20 MG TAB PO SCH (20:19)
[2018-03-26] MEDS: ASPIRIN 81 MG CHEWABLE TAB PO SCH (20:20)
[2018-03-26] MEDS: GABAPENTIN 300 MG CAP PO SCH (20:26)
[2018-03-27] MEDS: ACETAMINOPHEN 325 MG TAB PO SCH ×2 (05:21→14:09)
[2018-03-27] MEDS: FAMOTIDINE 20 MG TAB PO SCH (08:08)
[2018-03-27] MEDS: SENNOSIDES/DOCUSATE SODIUM TAB PO SCH (08:08)
[2018-03-27] MEDS: ASPIRIN 81 MG CHEWABLE TAB PO SCH (08:08)
[2018-03-27] MEDS: oxyCODONE IR 5 MG TAB PO PRN (08:09)
[2018-03-27] MEDS: GABAPENTIN 300 MG CAP PO SCH (08:09)
[2018-03-27] MEDS ORDERED: buPROPion XL 150 MG TAB PO SCH (09:00)
[2018-03-27] MEDS ORDERED: ATORVASTATIN CALCIUM 20 MG TAB PO SCH (09:00)
[2018-03-27] MEDS ORDERED: amLODIPine BESYLATE 5 MG TAB PO SCH (09:00)
--- NOTE | 2018-03-27 10:13 | SOAPPROG ---
SOAP Progress Note Assessment/Plan: Assessment: Patient is doing well POD 1 s/p RTKA Pain management: pain is well controlled on oral pain meds. VTE ppx: recommend 81 mg aspirin morning and evening for 4 weeks, cont SABINO and SCDs Anemia: level is expected initially postop. Asymptomatic. Continue to monitor D/c planning:patient has done much better than anticipated. Patient is stable, BP stable, pain well controlled and patient is eager for discharge to home. May d/c to home today pending release from PT Plan: 03/27/18 10:12 Subjective: No nausea, vomiting, shortness of breath or chest pain. Pain well-controlled Objective: Vital Signs Temp Pulse Resp BP Pulse Ox 36.4 C 86 13 121/65 H 92 03/27/18 07:38 03/27/18 07:38 03/27/18 07:38 03/27/18 08:08 03/27/18 07:38 Laboratory Results 03/27/18 04:31 03/27/18 04:31 03/26/18 03/27/18 03/28/18 05:59 05:59 05:59 Intake Total 2850 Output Total 1100 Balance 1750 RLE: incision dressing clean and dry, positive PF/DF, NVI ICD10 Worksheet Patient Problems: Problems Problem Status Onset Primary osteoarthritis of right knee Acute Pancreatitis, acute Acute
--- NOTE | 2018-03-27 11:13 | ASMTLACE ---
LACE Length of stay for Answers: Less than 1 day current admission Acuity / Level of Answers: No Care: Did the patient have an inpatient admission? Comorbidities - select Answers: Other Notes: sleep apnea all that apply # of Emergency department Answers: 0 visits in the last 6 months Social determinants Answers: Mental health diagnosis (anxiety, depression, pers onality disorders, etc.) Score: 4 Date Signed: 03/27/2018 11:12 AM Electronically Signed By:FRANCK Gillette
[2018-03-27 11:18] VITALS: BP 112/65
--- NOTE | 2018-03-27 13:28 | GDS ---
[f rep st] DISCHARGE SUMMARY ADMISSION DIAGNOSIS: Right knee osteoarthritis. DISCHARGE DIAGNOSIS: Right knee osteoarthritis. PROCEDURE: Right total knee arthroplasty, robot assisted. VTE PROPHYLAXIS: Recommend aspirin 81 mg twice daily for 4 weeks. BRIEF DESCRIPTION OF HOSPITAL STAY: Patient was admitted for an elective joint arthroplasty. The pa carloz tolerated the procedure well and has passed physical therapy. The patient was given appropriat e antibiotic prophylaxis and venous thromboembolism prophylaxis. The patient's pain was well control led on oral pain medication, patient was holding down food, and had urinated. Decision was made to d ischarge the patient. The patient was given post-operative prescriptions pre-operatively. PLAN: Followup scheduled with Dr. Cook's office on April 15 at 1:30 p.m. /[id number]/MODL
--- NOTE | 2018-03-27 15:25 | GOP ---
[f rep st] OPERATIVE REPORT DATE OF OPERATION: 03/26/2018 SURGEON: Vicky Cook MD [employer] PARALEGAL: Micki Cook PA-C. ANESTHESIA: Spinal. PREOPERATIVE DIAGNOSIS: Right knee osteoarthrosis. POSTOPERATIVE DIAGNOSIS: Right knee osteoarthrosis. PROCEDURE PERFORMED: Right total knee arthroplasty with computer navigation, robotic assist. FINDINGS: ESTIMATED BLOOD LOSS: 30 cc. INDICATIONS: The patient is a 77-year-old male with severe and progressive pain and deformity of the right knee unresponsive to conservative care. The risks and benefits of surgical intervention were explained in detail. DESCRIPTION OF PROCEDURE: The patient was brought to the operative room and placed on the table in the supine position. Spinal anesthesia was induced without difficulty. A pneumatic tourniquet was applied about the right proximal thigh, and the leg was prepped and draped in a sterile fashion. The leg enriquez was applied. After exsanguination by elevation the tourniquet was inflated to 250 mmHg. Incision was made anterior medial from the tibial tuberosity to a point 2 cm proximal to the superior pole of the patella. type II VMO, mild pathology, severe tricompartmental osteoarthritis. Medial parapatellar arthrotomy was carried out from the superior pole of the patella and posteriorly in line with the fibers of the Type II VMO. The medial collateral ligament was elevated and the infrapatellar fat pad was resected. The patella was everted and the articular surface was excised. A 35 mm patellar button was placed. Attention was turned first to the distal aspect of the femur. After exposure of the femur, 2 half pins were placed for fixation of the femoral array. In a similar fashion, 2 pins were placed anteromedial on the tibia for fixation of the tibial array. External land marking and registration of the hip center were performed without difficulty. Internal femoral and tibial registration were carried out without difficulty and the femoral and tibial checkpoints were placed and verified for accuracy. Attention was turned to the femur. The foot print for the size 5 femoral component was cut with the saw using the Pairy robotic system and verified for accuracy against the CT based plan. In a similar fashion, the saw was used to cut the footprint for the size 5 tibial component using the ARLETH system and verified for accuracy against the CT based plan. The tibial articular surface was excised without difficulty, followed by the intercondylar box cut. The knee was extended and the remnants of the medial and lateral meniscus were excised. The posterior capsule was injected with ropivacaine, epinephrine and Toradol. A size 5 tibial tray was positioned. Trial reduction was then carried out. There was excellent range of motion, alignment, and stability using the 5 x 9 mm polyethylene. All trials were then removed. The joint was thoroughly irrigated and carefully dried. The cemented components were implanted. The permanent 5 x 9 mm polyethylene was placed without difficulty. The tourniquet was deflated and all bleeders were coagulated. The wound was thoroughly irrigated and closed using interrupted sutures of 2-0 Vicryl for the joint capsule. The subcu was closed with 3-0 Vicryl and the skin with 4-0 Monocryl. Dermabond and Steri-Strips were applied followed by a compressive dressing. The patient was then moved from the operating room to the recovery room in good condition, having tolerated the procedure well. PATHOLOGY: Severe tricompartmental osteoarthritis. /[id number]/MODL MTDD
== END 2018-03-27 13:01 | disposition home or self-care (01) ==
LOC: F3N 03-26 06:50 → EDSTATUS 03-26 09:00 → F3N 03-26 13:05
PROVIDERS: ADMIT Orthopaedic Surgery; ATTEND Orthopaedic Surgery
DX: M17.11 Unilateral primary osteoarthritis, right knee (principal); G47.30 Sleep apnea, unspecified; F32.9 Major depressive disorder, single episode, unspecified; I10 Essential (primary) hypertension; E78.5 Hyperlipidemia, unspecified; Z87.891 Personal history of nicotine dependence; Z87.442 Personal history of urinary calculi
CPT/HCPCS: 27447; 73560; 88311; 97110; 97116; 97161; C1713; C1776; G0378; J0171; J0690; J1100; J1885; J2250; J2704; J2795; J3370

== ENCOUNTER → 2018-02-26 | Outpatient (CLI) | payer OTHER | LOC: FIMAGING 11:43 | PROVIDERS: ATTEND Physician Assistant | DX: Z01.818 Encounter for other preprocedural examination (principal); M17.11 Unilateral primary osteoarthritis, right knee ==

== ENCOUNTER → 2018-04-19 | Outpatient (CLI) | payer OTHER | LOC: FIMAGING 11:46 | PROVIDERS: ATTEND Specialist | DX: N20.0 Calculus of kidney (principal) ==

== ENCOUNTER → 2018-04-22 | Outpatient (CLI) | payer OTHER | LOC: FIMAGING 08:13 | PROVIDERS: ATTEND Specialist | DX: N20.0 Calculus of kidney (principal); N28.1 Cyst of kidney, acquired; N42.83 Cyst of prostate; R59.0 Localized enlarged lymph nodes ==

== ENCOUNTER 2018-05-28 14:25 | Observation (INO) | payer OTHER ==
--- NOTE | 2018-05-28 15:30 | EDPHY ---
H & P Stated Complaint: Seizure while at dentist Time Seen by Provider: 05/28/18 14:58 HPI/ROS: CHIEF COMPLAINT: Seizure HISTORY OF PRESENT ILLNESS: 79-year-old male with hypertension presents after seizure activity. He was sitting in the dentist chair and the dentist was just starting to give an inferior alveolar block, when he had sudden onset of generalized seizure activity. The seizure activity lasted approximately 90 sec and then resolved. After the episode, the patient was alert and was not confused. He was at the dentist's office because of a dental abscess. Decreased oral intake because of the abscess. He last took Percocet yesterday evening. He did not feel dizzy or sweaty prior to the incident. No prior history of syncope or seizure. No chest pain or shortness of breath. He did not hurt himself. REVIEW OF SYSTEMS: complete 10 point ROS reviewed and is negative except for the noted elements in the HPI - Personal History Current Tetanus/Diphtheria Vaccine: Yes - Medical/Surgical History Hx Asthma: No Hx Chronic Respiratory Disease: No Hx Diabetes: No Hx Cardiac Disease: No Hx Renal Disease: No Hx Cirrhosis: No Hx Alcoholism: No Hx HIV/AIDS: No Hx Splenectomy or Spleen Trauma: No Other PMH: PSH:cochlear implant; hernia repair x 2; r knee; wisdom teeth; T&A; christopher, parathyroid. PMH: depression; htn; insomnia; psoriasis;NATALIYA/cpap, pancreatitis - Social History Smoking Status: Former smoker Alcohol Use: Sober Drug Use: None - Physical Exam Exam: General Appearance: Alert, pleasant Eyes: Pupils equal and round, no conjunctival pallor or injection ENT, Mouth: Right mandibular swelling and tenderness, Mucous membranes moist Neck: Normal inspection Respiratory: Lungs are clear to auscultation Cardiovascular: Regular rate and rhythm Gastrointestinal: Abdomen is soft and nontender Neurological: Alert, oriented x3, cranial nerves II through XII intact, motor 5 /5, sensory grossly intact Skin: Warm and dry, linear rash on nose Extremities: Nontender, no pedal edema Psychiatric: Mood and affect normal Constitutional: Initial Vital Signs Temperature (C) 36.5 C 05/28/18 14:39 Heart Rate 101 H 05/28/18 14:39 Respiratory Rate 18 05/28/18 14:39 Blood Pressure 131/81 H 05/28/18 14:39 O2 Sat (%) 92 05/28/18 14:39 O2 Delivery Mode Room Air Allergies/Adverse Reactions: STRAWBERRIES Allergy (Intermediate, Uncoded 05/28/18 14:42) Hives Home Medications: Medication Instructions Recorded Betamethasone Dipropionate 1 litzy TP DAILY PRN 03/24/17 Gabapentin [Neurontin 300 MG (*)] 600 mg PO HS PRN 03/24/17 amLODIPine BESYLATE [Norvasc 5 mg 5 mg PO DAILY 03/24/17 (*)] Ascorbic Acid [Vitamin C 500 mg 500 mg PO BID 01/21/18 (*)] Atorvastatin Calcium [Lipitor 20 20 mg PO DAILY@18 01/21/18 mg (*)] Bupropion HCl [Wellbutrin Xl] 300 mg PO DAILY 01/21/18 Acetaminophen [Tylenol 325mg (*)] 650 mg PO Q6HRS tab 03/27/18 Famotidine [Pepcid 20 MG (*)] 20 mg PO BID tab 03/27/18 oxyCODONE IR [Oxycodone Ir (*)] 5 - 10 mg PO Q3HRS PRN tab 03/27/18 Aspirin [Aspirin 325 mg (*)] 325 mg PO DAILY PRN 05/28/18 Ibuprofen [Motrin (*)] 200 - 600 mg PO DAILY PRN 05/28/18 Medical Decision Making - Diagnostics EKG Interpretation: EKG interpreted by me reveals normal sinus rhythm, rate 95, LVH with secondary repolarization abnormality. Interpretation: Abnormal EKG Imaging Results: Imaging Impressions Head CT 05/28/18 14:59 Impression: 1. Mild atrophy. 2. No acute hemorrhage, hydrocephalus, or mass effect. 3. Cerebrovascular atherosclerosis. 4. No definite acute infarct. 5. Moderate microvascular ischemic gliosis. 6. Consider MRI of the brain, if there is continued clinical concern. Findings and recommendations discussed with Emergency Department physician, Shaniqua Jain, at 16:03 hours, 05/28/2018. Final report concurs with initial preliminary interpretation. Imaging: Discussed imaging studies w/ call taker Radiologist ED Course/Re-evaluation: This patient presents with syncope versus seizure, most likely a syncopal episode with seizure-like activity. Neurologic exam is normal. Lack of prodromal symptoms is concerning for dysrhythmia. Stat EKG reveals no evidence of ischemia or dysrhythmia. IV normal saline 1 L given for dehydration. CT scan of the brain is unremarkable. Results discussed with the patient and his . IV clindamycin given for dental abscess. Observation in the emergency department; the patient remained stable throughout and engineer revealed normal sinus rhythm. I feel that he should be admitted for further evaluation of syncopal episode. The patient and his concur with this plan. The hospitalist service was consulted for admission. Differential Diagnosis: Differential diagnosis includes though is not limited to cardiac dysrhythmia, CVA, TIA, GI bleed, sepsis, hypoglycemia. - Data Points Laboratory Results: Laboratory Results 05/28/18 15:15 05/28/18 15:15 05/28/18 05/28/18 05/28/18 16:00 15:22 15:15 WBC RBC Hgb Hct MCV MCH MCHC RDW Plt Count MPV Neut % (Auto) Lymph % (Auto) [place] % (Auto) Eos % (Auto) Baso % (Auto) Nucleat RBC Rel Count Absolute Neuts (auto) Absolute Lymphs (auto) Absolute Monos (auto) Absolute Eos (auto) Absolute Basos (auto) Absolute Nucleated RBC Immature Gran % Immature Gran # D-Dimer 2.68 ug/mLFEU H ug/mLFEU (0.00-0.50) Sodium 139 mEq/L mEq/L (135-145) Potassium 3.5 mEq/L mEq/L (3.5-5.2) Chloride 102 mEq/L mEq/L (97-110) Carbon Dioxide 24 mEq/l mEq/l (22-31) Anion Gap 13 mEq/L mEq/L (6-14) BUN 12 mg/dL mg/dL (7-23) Creatinine 1.0 mg/dL mg/dL (0.7-1.3) Estimated GFR > 60 Glucose 117 mg/dL H mg/dL (70-100) Calcium 9.3 mg/dL mg/dL (8.5-10.4) POC Troponin I 0.05 ng/mL ng/mL (0.00-0.08) 05/28/18 15:15 WBC 12.87 10^3/uL H 10^3/uL (3.80-9.50) RBC 5.65 10^6/uL 10^6/uL (4.40-6.38) Hgb 16.7 g/dL g/dL (13.7-17.5) Hct 49.9 % % (40.0-51.0) MCV 88.3 fL fL (81.5-99.8) MCH 29.6 pg pg (27.9-34.1) MCHC 33.5 g/dL g/dL (32.4-36.7) RDW 14.0 % % (11.5-15.2) Plt Count 191 10^3/uL 10^3/uL (150-400) MPV 9.5 fL fL (8.7-11.7) Neut % (Auto) 83.9 % H % (39.3-74.2) Lymph % (Auto) 6.8 % L % (15.0-45.0) [place] % (Auto) 7.0 % % (4.5-13.0) Eos % (Auto) 1.2 % % (0.6-7.6) Baso % (Auto) 0.5 % % (0.3-1.7) Nucleat RBC Rel Count 0.0 % % (0.0-0.2) Absolute Neuts (auto) 10.79 10^3/uL H 10^3/uL (1.70-6.50) Absolute Lymphs (auto) 0.88 10^3/uL L 10^3/uL (1.00-3.00) Absolute Monos (auto) 0.90 10^3/uL H 10^3/uL (0.30-0.80) Absolute Eos (auto) 0.16 10^3/uL 10^3/uL (0.03-0.40) Absolute Basos (auto) 0.06 10^3/uL 10^3/uL (0.02-0.10) Absolute Nucleated RBC 0.00 10^3/uL 10^3/uL (0-0.01) Immature Gran % 0.6 % % (0.0-1.1) Immature Gran # 0.08 10^3/uL 10^3/uL (0.00-0.10) D-Dimer Sodium Potassium Chloride Carbon Dioxide Anion Gap BUN Creatinine Estimated GFR Glucose Calcium POC Troponin I Medications Given: Acetaminophen (Tylenol) 650 mg PO Q4HRS PRN PRN Reason: Pain, Mild/Fever, Can Take PO Stop: 11/24/18 17:16 Last Admin: 05/28/18 20:44 Dose: 650 mg Ascorbic Acid (Vitamin C) 500 mg PO BID [facility] Stop: 11/24/18 20:59 Last Admin: 05/28/18 22:11 Dose: 500 mg Famotidine (Pepcid) 20 mg PO BID [facility] Stop: 11/24/18 20:59 Last Admin: 05/28/18 22:11 Dose: 20 mg Gabapentin (Neurontin) 600 mg PO HS PRN PRN Reason: Restless leg syndrome/leg pain Stop: 11/24/18 20:43 Last Admin: 05/28/18 22:11 Dose: 600 mg Heparin Sodium (Porcine) (Heparin Sc Injection) 5,000 unit SC Q8 AMANDA Stop: 11/24/18 21:59 Last Admin: 05/28/18 22:11 Dose: 5,000 unit Sodium Chloride (Ns) 1,000 mls @ 100 mls/hr IV CONT AMANDA Stop: 05/30/18 03:29 Last Admin: 05/28/18 19:32 Dose: 1,000 mls Ampicillin Sodium/Sulbactam (Sodium 3 gm/ Sodium Chloride) 100 mls @ 200 mls/ hr IV Q6HRS AMANDA PRN Reason: Protocol Stop: 06/27/18 18:29 Last Admin: 05/28/18 19:32 Dose: 100 mls Discontinued Medications Clindamycin Phosphate/Dextrose (Cleocin 600 Mg (Premix)) 50 mls @ 100 mls/hr IV EDNOW ONE PRN Reason: Protocol Stop: 05/28/18 16:03 Last Admin: 05/28/18 16:04 Dose: 50 mls Sodium Chloride (Ns) 1,000 mls @ 0 mls/hr IV ONCE ONE; Wide Open PRN Reason: Protocol Stop: 05/28/18 15:35 Last Admin: 05/28/18 16:03 Dose: 1,000 mls Point of Care Test Results: Chemistry 05/28/18 15:22 POC Troponin I 0.05 ng/mL ng/mL (0.00-0.08) Departure - Departure Disposition: [facility] Inpatient Acute Clinical Impression: Dental abscess Syncope Qualifiers: Syncope type: unspecified Qualified Code(s): R55 - Syncope and collapse Condition: Fair
[2018-05-28 15:31] LABS: PLATELET COUNT 191 10^3/uL (150-400)
[2018-05-28] MEDS ORDERED: CLINDAMYCIN 600 MG/DEXTROSE 50 ML IV ONE (15:34)
[2018-05-28] MEDS ORDERED: NS 1,000 ML IV ONE (15:34)
[2018-05-28] MEDS ORDERED: oxyCODONE IR 5 MG TAB PO PRN (17:17)
[2018-05-28] MEDS ORDERED: ONDANSETRON 4 MG/2 ML VIAL IVP PRN (17:17)
[2018-05-28] MEDS ORDERED: ACETAMINOPHEN 325 MG TAB PO PRN (17:17)
[2018-05-28] MEDS ORDERED: ONDANSETRON DISINTEGRATING 4 MG TAB PO PRN (17:17)
[2018-05-28] MEDS ORDERED: LORazepam 2 MG/ML INJ IVP PRN (18:10)
--- NOTE | 2018-05-28 18:33 | HOSPPROG ---
Hospitalist Progress Note Assessment/Plan: Pt seen and evaluated. Chart reviewed. Case discussed with Iris Jenkins [employer]. Please see her H&P for details. 77 yo male presented to ED after possible seizure during dental procedure. Unclear if this was a syncopal event versus true new onset seizure. CT head neg. He has facial swelling and likely dental abscess with elevated wbc's. Case reviewed with neurology by Iris Jenkins. Will obtain MRI brain with and without contrast, place on seizure precautions with prn ativan, but defer anti- epileptics for now unless recurrent seizure. Query if this was medication induced as episode occurred while having dental block performed. Neurology to consult in am. Syncope workup also pursued with elevated d dimer. Will obtain CTA. Note pt is s/p recent TKA. Echo also ordered. Facial CT to better evaluate extent of abscess given marked facial swelling and leukocytosis. Cover with Unasyn for now. Objective: Vital Signs Temp Pulse Resp BP Pulse Ox 36.6 C 101 H 18 129/80 H 94 05/28/18 18:11 05/28/18 18:11 05/28/18 18:11 05/28/18 18:11 05/28/18 18:11 ICD10 Worksheet Patient Problems: Problems Problem Status Onset Syncope Acute Pancreatitis, acute Acute Primary osteoarthritis of right knee Acute
--- NOTE | 2018-05-28 18:52 | PDGENHP ---
History and Physical - Chief Complaint Syncope versus seizure - History of Present Illness This is a 77-year-old male with history of hypertension, depression, insomnia and obstructive sleep apnea presenting to the emergency room after suffering what is believed to be 1st onset of seizure. He has a dental abscess that began on Thursday night located on the right side, back molar with a crown on it. Today while in the dentist's chair with Dr. Jersey Booth (S), was scheduled to have this extracted. Dr. Booth was able to drain some purulent fluid. When he was numb in the area with Seplocaine 34 mg he noticed the patient twitching and then began to have full body shakes. Dr. Booth turned the patient to his side and called for assistance. This apparently lasted 90 sec and when the patient came to he was alert and oriented and did not appear to be confused. The patient denies any prodromal symptoms. He also does not have a history of syncope nor seizures. No cardiac history. He denies chest pain, shortness of breath, palpitations, nausea, vomiting, urinary incontinence, diarrhea or constipation, fever, or chills. He does tell me he recently had his right knee replaced [address] Lance mcguire and at that time was taking a baby aspirin. Prior to his dental procedure today he was given 2000 mg of amoxicillin. It is difficult to determine whether this is a syncope event or first-time seizure possibly drug-induced.Head CT without contrast revealed mild atrophy, no acute hemorrhage or mass effect and no definite acute infarct. EKG was sinus rhythm normal axis with no significant ST elevation or depression with left ventricular hypertrophy. D-dimer was elevated at 2.68. Dr. Jersey Booth contact information is the following: Cell phone [phone]; office number is [phone] Patient is being admitted for further workup, treatment and monitoring. History Information - Allergies/Home Medication List Allergies/Adverse Reactions: STRAWBERRIES Allergy (Intermediate, Uncoded 05/28/18 14:42) Hives Home Medications: Betamethasone Dipropionate 1 litzy TP DAILY PRN 03/24/17 [Last Taken 03/22/18] Gabapentin [Neurontin 300 MG (*)] 300 mg PO BID 03/24/17 [Last Taken 03/25/18] amLODIPine BESYLATE [Norvasc 5 mg (*)] 5 mg PO DAILY 03/24/17 [Last Taken 06:15] Ascorbic Acid [Vitamin C 500 mg (*)] 500 mg PO BID 01/21/18 [Last Taken 03/06/18 ] Atorvastatin Calcium [Lipitor 20 mg (*)] 20 mg PO DAILY 01/21/18 [Last Taken 09/03] Bupropion HCl [Wellbutrin Xl] 300 mg PO DAILY 01/21/18 [Last Taken 03/25/18] I have personally reviewed and updated: family history, medical history, social history, surgical history Past Medical History: Hypertension, depression, insomnia, psoriasis, obstructive sleep apnea on CPAP - Surgical History Additional surgical history: Cochlear implant, hernia repair, right knee replacement 6 weeks ago, wisdom teeth removal, T&A, cholecystectomy, parathyroidectomy - Family History Positive for: hypertension - Social History Smoking Status: Former smoker Alcohol Use: Sober Drug Use: None Additional social history: . Lives in [place]. Review of Systems Review of Systems: ROS: 10pt was reviewed & negative except for what was stated in HPI & below Physical Exam Physical Exam: Lab data and imaging were reviewed. Case discussed with Dr. Taran Harris. White blood count: 12.87 Hemoglobin and hematocrit 16.7 and 49.9 Platelet count: 191 Sodium: 139 Potassium: 3.5 BUN/Cr: 12/1.[address] and EKG results noted in the HPI Temp Pulse Resp BP Pulse Ox 36.6 C 101 H 18 129/80 H 94 05/28/18 18:11 05/28/18 18:11 05/28/18 18:11 05/28/18 18:11 05/28/18 18:11 O2 (L/minute) 2 Constitutional: no apparent distress, appears nourished, not in pain Eyes: PERRL, anicteric sclera, EOMI Ears, Nose, Mouth, Throat: ears appear normal, poor dentition (Right back molar is a dental abscess patient reports bacteria underneath the crown and he was at the dentist today to have this removed in taking care of; denies foul tasting; right buccal enlarged), hard of hearing Cardiovascular: regular rate and rhythym, tachycardia Peripheral Pulses: 2+: dorsalis-pedis (R), dorsalis-pedis (L) Respiratory: no respiratory distress, no rales or rhonchi, clear to auscultation Gastrointestinal: normoactive bowel sounds, soft, non-tender abdomen, no palpable masses Genitourinary: no bladder fullness, no bladder tenderness Skin: warm, normal color, no rashes or abrasions, no fluctuance, no induration, No mottled Musculoskeletal: full muscle strength, no muscle tenderness, normal joint ROM, no joint effusions Neurologic: AAOx3, sensation intact bilaterally, CN II-XII Intact Psychiatric: interacting appropriately, not anxious, not encephalopathic, thought process linear Lymph, Heme, Immunologic: no cervical LAD, no supraclavicular LAD Lab Data & Imaging Review 05/28/18 15:15 05/28/18 15:15 WBC 12.87 10^3/uL (3.80-9.50) H 05/28/18 15:15 RBC 5.65 10^6/uL (4.40-6.38) 05/28/18 15:15 Hgb 16.7 g/dL (13.7-17.5) 05/28/18 15:15 Hct 49.9 % (40.0-51.0) 05/28/18 15:15 MCV 88.3 fL (81.5-99.8) 05/28/18 15:15 MCH 29.6 pg (27.9-34.1) 05/28/18 15:15 MCHC 33.5 g/dL (32.4-36.7) 05/28/18 15:15 RDW 14.0 % (11.5-15.2) 05/28/18 15:15 Plt Count 191 10^3/uL (150-400) 05/28/18 15:15 MPV 9.5 fL (8.7-11.7) 05/28/18 15:15 Neut % (Auto) 83.9 % (39.3-74.2) H 05/28/18 15:15 Lymph % (Auto) 6.8 % (15.0-45.0) L 05/28/18 15:15 [place] % (Auto) 7.0 % (4.5-13.0) 05/28/18 15:15 Eos % (Auto) 1.2 % (0.6-7.6) 05/28/18 15:15 Baso % (Auto) 0.5 % (0.3-1.7) 05/28/18 15:15 Nucleat RBC Rel Count 0.0 % (0.0-0.2) 05/28/18 15:15 Absolute Neuts (auto) 10.79 10^3/uL (1.70-6.50) H 05/28/18 15:15 Absolute Lymphs (auto) 0.88 10^3/uL (1.00-3.00) L 05/28/18 15:15 Absolute Monos (auto) 0.90 10^3/uL (0.30-0.80) H 05/28/18 15:15 Absolute Eos (auto) 0.16 10^3/uL (0.03-0.40) 05/28/18 15:15 Absolute Basos (auto) 0.06 10^3/uL (0.02-0.10) 05/28/18 15:15 Absolute Nucleated RBC 0.00 10^3/uL (0-0.01) 05/28/18 15:15 Immature Gran % 0.6 % (0.0-1.1) 05/28/18 15:15 Immature Gran # 0.08 10^3/uL (0.00-0.10) 05/28/18 15:15 D-Dimer 2.68 ug/mLFEU (0.00-0.50) H 05/28/18 16:00 Sodium 139 mEq/L (135-145) 05/28/18 15:15 Potassium 3.5 mEq/L (3.5-5.2) 05/28/18 15:15 Chloride 102 mEq/L (97-110) 05/28/18 15:15 Carbon Dioxide 24 mEq/l (22-31) 05/28/18 15:15 Anion Gap 13 mEq/L (6-14) 05/28/18 15:15 BUN 12 mg/dL (7-23) 05/28/18 15:15 Creatinine 1.0 mg/dL (0.7-1.3) 05/28/18 15:15 Estimated GFR > 60 05/28/18 15:15 Glucose 117 mg/dL (70-100) H 05/28/18 15:15 Calcium 9.3 mg/dL (8.5-10.4) 05/28/18 15:15 POC Troponin I 0.05 ng/mL (0.00-0.08) 05/28/18 15:22 Assessment & Plan Plan: This is a 77-year-old male with no syncopal or seizure history in the past. No family history. His vital signs are the following: Blood pressure 129/80, heart rate 101, respirations 18, 94% on room air, temperature 36.6 degrees. Today while in the dentist's chair to extract infected tooth and receiving a lidocaine type medication he apparently began to twitch full body which lasted approximately 90 sec per the dentist. Once it stopped he was not confused he was alert and oriented. He denies experiencing body aches or feeling fatigue. This could possibly be drug-induced 1st time seizure or possibly a syncopal event. Plan: -due to his recent knee surgery, tachycardia, and elevated D-dimer being 2.68 we will perform a chest CTA with contrast to rule out possible pulmonary embolism. -facial CT without contrast to evaluate further the severity of his abscess -he received clindamycin in the emergency room; initiated Unasyn every 6 hr; retrieving blood cultures. Reassess in the morning. White blood cell count in the morning. Magnesium pending. -seizure precautions initiated; Ativan p.r.n. -neurology consulted; spoke to Dr. Harris who recommended brain MRI with and without contrast which we will get in the morning -echo complete pending to evaluate any wall abnormalities or perfusion concerns -continuous tele and pulse ox monitoring -orthostatic vitals 1 time -IV fluids x2 bags; will retrieve creatinine lab in the morning Diet: Regular Code: Full VTE ppx: LMWH Dispo: Admit to obs
--- NOTE | 2018-05-28 19:15 | CPEKG ---
Test Reason : OPEN Blood Pressure : / mmHG Vent. Rate : 095 BPM Atrial Rate : 096 BPM P-R Int : 212 ms QRS Dur : 087 ms QT Int : 362 ms P-R-T Axes : 039 -16 144 degrees QTc Int : 455 ms Sinus rhythm Borderline prolonged KS interval LVH with secondary repolarization abnormality Confirmed by Shaniqua Justice ([id number]) on 05/28/2018 7:14:28 PM Referred By: SHANIQUA JUSTICE Confirmed By:Shaniqua Justice
[2018-05-28] MEDS: AMPICILLIN/SULBACTAM 3 GM in NS 100 ML IV SCH (19:32)
[2018-05-28] MEDS: NS 1,000 ML IV SCH (19:32)
[2018-05-28] MEDS ORDERED: IOPAMIDOL (ISOVUE 370) 100 ML BTL IV ONE (19:33)
[2018-05-28] MEDS ORDERED: GABAPENTIN 300 MG CAP PO PRN (20:44)
[2018-05-28] MEDS: FAMOTIDINE 20 MG TAB PO SCH (22:11)
[2018-05-28] MEDS: ASCORBIC ACID 500 MG TAB PO SCH (22:11)
[2018-05-28] MEDS: HEPARIN 5,000 UNIT/0.5 ML INJ SC SCH (22:11)
[2018-05-29] MEDS: AMPICILLIN/SULBACTAM 3 GM in NS 100 ML IV SCH ×3 (00:26→11:49)
[2018-05-29] MEDS: NS 1,000 ML IV SCH (05:45)
[2018-05-29] MEDS: HEPARIN 5,000 UNIT/0.5 ML INJ SC SCH (05:47)
--- NOTE | 2018-05-29 08:06 | ECHO ---
[email or web address] [address] [address] Main: [phone] Echocardiography Examination Transthoracic Name: SPEEDY ENRIQUEZ MR#: [id number] Study Date: 05/28/2018 Study Time: 06:46 PM Date of : 1940 Age: 77 year(s) Height: 175.3 cm (69 in.) Weight: 97.52 kg (215 lb.) BSA: 2.13 m2 Gender: Male Examination: Echo Contrast: Image Quality: Adequate Rhythm: Heart Rate: BP: 129 mmHg/80 mmHg Indication: Syncope vs seizure (dental office) Procedure Staff Referring Physician: Medication Aide: Gianna Monroy [facility] Reading Physician: Leobardo Gonzalez MD Requesting Provider: Ordering Physician: Maame Jenkins Indication: Syncope vs seizure (dental office) Measurements Chambers AV/MV Label Value Normal Value Label Value Normal Value LVDd, 2D 4.3 cm (4.2cm - 5.9cm) AV PGmean 4 mmHg LVDs, 2D 3.1 cm (2.1cm - 4cm) AV Vmax 1.53 m/s IVSd, 2D 0.7 cm (0.6cm - 1.1cm) MV E Vmax 0.58 m/s LVPWd, 2D 0.8 cm (0.6cm - 1cm) MV A Vmax 1.12 m/s LVEF, BP 67 % (55% - 70%) MV E/A 0.52 LVEF, 2D 55 % (54% - 74%) MV E/E' lateral 5.4 LA Volume, BP 68 ml (18ml - 58ml) MV E/E' septal 11.1 (0.45 - 1.25) LADs, 2D 3.6 cm (3cm - 4cm) MV E' septal 0.05 m/s LAESV index, BP 31.9 ml/m2 MV E' lateral 0.11 m/s Additional Vessels MV E/E' mean 7.25 Label Value Normal Value MV E' mean 0.08 m/s AoAsc 2.9 cm AoRoot, MM 3.5 cm (2.2cm - 3.7cm) Conclusions Normal left ventricular size and function. LVEF estimated at 60-65% and calculated at 60 7% by Torres's. Normal left ventricular free wall thickness and wall motion. Normal diastolic function. Borderline left atrial enlargement. Normal RA and RV size and RV function. Normal appearing valvular structures. No significant valvular stenosis or regurgitation. No pericardial effusion. Patient: SPEEDY ENRIQUEZ Study Date: 05/28/2018 Page 1 of 2 06:46 PM Findings Left Ventricle: E/a wave reversal.. Left ventricle is normal in size. Normal global systolic left ventricular function. The ejection fraction, measured by Simpsons method, is 67 %. EF range is estimated at 60 % - 65 %. Left ventricle wall thickness is normal. There are no regional wall motion abnormalities. Left ventricular diastolic function parameters are normal. IVS: The septum is intact. Right Ventricle: Normal size right ventricle. Right ventricular wall thickness is normal. Right ventricular systolic function is normal. Left Atrium: The left atrium is normal in size. IAS: Normal appearing atrial septum. Right Atrium: The right atrium is normal in size. Mitral Valve: Normal . No mitral regurgitation. No mitral valve stenosis. Aortic Valve: Aortic leaflets exhibit normal cuspal separation. No aortic valve regurgitation. There is no aortic stenosis. The aortic valve is trileaflet. Tricuspid Valve: Tricuspid valve leaflets are normal in appearance and function. No tricuspid regurgitation. No tricuspid valve stenosis. Pulmonary artery pressure normal. Pulmonic Valve: Pulmonic leaflets exhibit normal cuspal separation. No pulmonic valve regurgitation is evident. There is no pulmonic valve stenosis. Aorta: The aorta is normal. The aortic root size in M-mode measures 3.5 cm. The ascending aorta measures 2.9 cm. Aorta Measurements AoRoot, MM is 3.5 cm. Pulmonary Artery: The pulmonary artery morphology appears normal. IVC: The inferior vena cava is normal in size and course. Pericardium: No pericardial effusion. No pleural effusion present. Exam Details Procedure Ordered: Echo Procedure Status: Routine study Image Quality: Adequate Facility Location: Cardiac Echo 1 (No Signature Object) Patient: SPEEDY ENRIQUEZ Study Date: 05/28/2018 Page 2 of 2 06:46 PM [id number]
[2018-05-29] MEDS ORDERED: buPROPion XL 150 MG TAB PO SCH (09:00)
[2018-05-29] MEDS ORDERED: amLODIPine BESYLATE 5 MG TAB PO SCH (09:00)
[2018-05-29] MEDS: FAMOTIDINE 20 MG TAB PO SCH (09:33)
[2018-05-29] MEDS: ASCORBIC ACID 500 MG TAB PO SCH (09:35)
[2018-05-29] MEDS ORDERED: PNEUMOC 13-VAL CONJ-DIP CRM/PF 0.5 ML SYR (PREVNAR 13) IM ONE (09:44)
--- NOTE | 2018-05-29 10:28 | GCON ---
[f rep st] CONSULTATION NEUROLOGIC CONSULTATION. HISTORY: The patient is a 77-year-old, who had a dental procedure yesterday and received anesthetic with Septocaine 34 mg. After this, he developed some twitching that eventually affected the whole john dy and appeared to be seizure activity with decreased responsiveness for approximately 90 seconds, an d then fairly promptly returned to his baseline without a prolonged postictal state. He has been adm itted to the hospital for evaluation of possible seizure. Prior to his procedure, he had also receiv ed 2000 mg of [address]icillin. Head CT is unremarkable. MRI is precluded by a cochlear implant. He has been stable since [facility]. He has no prior history of seizure or significant head trauma. No family history of seizure s. No history of alcoholism. He has additional past medical history of hypertension, depression, insomnia, psoriasis, obstructive sleep apnea. He is being treated for a dental abscess. PHYSICAL EXAMINATION: VITAL SIGNS: Blood pressure 132/80, pulse of 86, respirations 24, temperature 36.8. GENERAL: He is well developed, in no acute distress. EYES: Clear. NECK: Supple with no b ruits or masses. CARDIAC: Regular rate and rhythm. No murmur. NEUROLOGIC: He is awake, alert, an d attentive, but hard of hearing. Pupils 2 mm and reactive. Extraocular movements intact. Normal f acial sensation and strength. Hearing preserved, except for that from his hearing loss. He does muc h better with his hearing aid and cochlear implant. Motor exam: Normal muscle bulk and tone, 5/5 st rength. No sensory loss. IMPRESSION: The patient had an apparent seizure which could have been induced by effects of the anes thetic, although this is quite rare, and penicillin also can lower the seizure threshold and he recei krista a dose of that as well. His Wellbutrin can be known to lower the seizure threshold, so I presume this rare combination induced this phenomenon. I told him that if alternatives can be given for ane sthetic and perhaps nitrous oxide, that would be ideal. I would not say it is definitively contraind icated, but certainly a risk factor we now need to have him keep in consideration moving forward with any other kind of anesthetics. There is not a clear indication for anticonvulsant therapy. MRI is precluded because of the cochlear implant. I do not think it is necessary to obtain outpatient EEG o r any specific neurologic followup unless something else were to recur. He was advised he should not drive for now due to this event. I would recommend not driving for at least 2 weeks. Because of th e tight association with this injection, that is the reason I am not recommending a more prolonged re striction of driving. Total unit time of 55 minutes. /[id number]/MODL
[2018-05-29 12:10] VITALS: BP 125/77
[2018-05-29] MEDS ORDERED: ENOXAPARIN 40 MG/0.4 ML SYR SC SCH (14:00)
--- NOTE | 2018-05-29 14:17 | PDDCSUM ---
Discharge Summary Discharge Summary: DISCHARGE DIAGNOSES: * Acute seizure 1st ever, suspect medication induced * Dental infection CONSULTANTS: Dr. Taran Harris PROCEDURES: CT scan of head HOSPITAL COURSE SUMMARY: This patient had, on the day of admission, what sounds like his 1st ever seizure while receiving anesthetic agent seplocane at his dentist's office for a procedure to try and drain a dental abscess. He has had no recurrent seizures since then. He has a nonfocal neurologic exam and noted acute changes in mentation. There are no fevers. Electrolytes are in good range in vital signs have been normal. There is no history of trauma cancers stroke or brain injury of other kind. Notably the patient takes Wellbutrin which does slightly change seizure threshold. In addition he takes CPAP at night for chronic sleep apnea but says he had not used it for a couple nights prior to this episode because of soreness aggravated by his mask with the dental infection. He does take gabapentin for restless leg syndrome and believes that he took all of his gabapentin doses at home. A CT scan here is unrevealing other than his dental infection. We are unable to do an MRI scan because he has a prior cochlear implant. There is no cardiac arrhythmia or other cardiac abnormality noted. At this time it seems that sleep deprivation and combination of Wellbutrin and anesthetic may have been a cause of the seizure. For now it is strongly recommended that he continue to use his sleep apnea each night and I recommended that for the time being he use cold packs Tylenol and Advil to make that easier and more comfortable. In addition is recommended that he use a different anesthesia/analgesia technique for planned dental extraction this week. The patient is warned that stopping or missing doses of his gabapentin could potentially cause seizure and so he is warned to continue taking that medicine and only taper or stop the medicine under the direction of his physicians. The patient has been advised to not drive for 2 weeks, the reason for a 2 week restriction is that this is felt to be an episode induced by medications and sleep deprivation and should be preventive below if he avoids those things. PENDING TEST RESULTS: None MEDICATION CHANGES: Augmentin 875 mg twice daily FOLLOW-UP PLAN: With Dr. Booth in his [facility] this coming week With Dr. Harris in 4 weeks Greater than 35 minutes bedside and care coordination time today
--- NOTE | 2018-05-29 14:29 | ASMTLACE ---
LACE Length of stay for Answers: Less than 1 day current admission Acuity / Level of Answers: Yes Care: Did the patient have an inpatient admission? Comorbidities - select Answers: Other Notes: sleep apnea all that apply # of Emergency department Answers: 1-2 visits in the last 6 months Social determinants Answers: Mental health diagnosis (anxiety, depression, pers onality disorders, etc.) Score: 8 Date Signed: 05/29/2018 02:28 PM Electronically Signed By:Andreea Argueta
[2018-05-29] MEDS ORDERED: ATORVASTATIN CALCIUM 20 MG TAB PO SCH (18:00)
[2018-05-29] MEDS ORDERED: AMPICILLIN/SULBACTAM 3 GM in NS 100 ML IV SCH (18:30)
== END 2018-05-29 15:08 | disposition home or self-care (01) ==
LOC: F2W 17:23
PROVIDERS: ADMIT Hospitalist; ATTEND Internal Medicine
DX: R56.9 Unspecified convulsions (principal); K04.7 Periapical abscess without sinus; E86.9 Volume depletion, unspecified; I10 Essential (primary) hypertension; F32.9 Major depressive disorder, single episode, unspecified; G47.00 Insomnia, unspecified; G47.33 Obstructive sleep apnea (adult) (pediatric); Z96.651 Presence of right artificial knee joint; Z87.891 Personal history of nicotine dependence; Z96.21 Cochlear implant status; Z23 Encounter for immunization
CPT/HCPCS: 70450; 70487; 71275; 90670; 93005; 93306; 97161; 97165; G0009; G0378; J0295; J1644; Q9967; 84484-ER; 96365